=== PATIENT | male | born 1955 | race Caucasian/White ===

== ENCOUNTER 2022-01-20 00:47 | Inpatient (IN) | payer OTHER, SELFPAY ==
[2022-01-20] VITALS (64 sets, daily range): BP systolic 71–136; BP diastolic 43–66; PULSE 74–97; RESP 9–21; TEMP 36.7–37.1; O2SAT 91–98; BMI 24.8
--- NOTE | 2022-01-20 00:52 | DI.CT.S_ITS ---
PROCEDURE: CT STROKE INDICATIONS: altered, fall, head injury TECHNIQUE: Noncontrast 4.5 mm thick angled axial sections acquired from the foramen magnum to the vertex, with coronal reformats. For radiation dose reduction, the following was used: automated exposure control, adjustment of mA and/or kV according to patient size. COMPARISON: None. FINDINGS: Image quality: Excellent. CSF spaces: Basal cisterns are patent. No extra-axial fluid collections. The ventricles are normal in size and shape. Brain: No intracranial bleeds or masses. There is cerebral volume loss for age, with resultant ventricular and sulcal prominence. There are periventricular and deep white matter chronic small vessel ischemic changes. There is intracranial internal carotid artery atherosclerosis. There are postsurgical changes involving the posterior left parietal lobe with associated encephalomalacia of the left posterior parietal lobe. Moderate deep white matter hypoattenuation extending to the posterior horn of the left lateral ventricle. Skull and face: Calvarium and visualized facial bones appear intact, without suspicious lesions. Postsurgical changes of prior left posterior parietal craniotomy. Sinuses: Visualized sinuses and mastoids are clear. IMPRESSION: 1. CT head without acute intracranial abnormalities. No acute intracranial hemorrhage. 2. Postoperative changes of the left posterior parietal lobe with associated encephalomalacia. No evidence for mass or mass effect. 3. Postoperative changes of prior left parietal craniotomy. 4. Age related senescent changes and sequela of chronic small vessel ischemic disease. Findings were discussed with Dr. Lmaa at 0114 hrs. This study fulfills neurological imaging criteria for inclusion or exclusion of acute stroke therapies based on available published neurological guidelines. Dictated by: Sergio Thornton M.D. on 01/20/2022 at 1:09 Approved by: Sergio Thornton M.D. on 01/20/2022 at 1:16
--- NOTE | 2022-01-20 00:54 | ED_ITS ---
HPI - Neuro Symptoms/Deficit <Joaquín Lama DO - Last Filed: 01/21/22 04:35> General Chief Complaint: Neuro Symptoms/Deficit Stated Complaint: Fall/Stroke Time Seen by Provider: 01/20/22 00:52 History of Present Illness HPI Narrative: 66-year-old male nonsmoker with history of prior stroke, brain surgery on Xarelto, phrenic nerve paralysis, HTN, Hyperlipidemia, PE presents by EMS as a code stroke for evaluation of altered mental status surrounding a fall. He was last seen at his normal baseline at 11:00 p.m., he had an unwitnessed fall resulting in a scalp laceration at 11:20 p.m. and EMS was called. He is nauseated but has had no vomiting. He denies any blurred vision or trouble with speech. He has residual right-sided deficits from prior stroke and surgeries. Related Data Home Medications Medication Instructions Recorded Confirmed aripiprazole 5 mg tablet 5 mg PO 1700 01/20/22 01/20/22 atorvastatin 20 mg tablet 20 mg PO QPM 01/20/22 01/20/22 bupropion HCl 200 mg tablet,12 hr 200 mg PO BID 01/20/22 01/20/22 sustained-release buspirone 15 mg tablet 15 mg PO TID 01/20/22 01/20/22 diphenhydramine HCl 25 mg tablet 25 - 50 mg PO Q4HR PRN 01/20/22 01/20/22 duloxetine 60 mg capsule,delayed 60 mg PO 1700 01/20/22 01/20/22 release fluticasone propionate 50 2 spray INTRANASAL BID 01/20/22 01/20/22 mcg/actuation nasal spray,suspension hydromorphone 8 mg tablet 8 mg PO Q6H 01/20/22 01/20/22 hydromorphone 8 mg tablet,extended 8 mg PO 2200 01/20/22 01/20/22 release 24 hr lisinopril 40 mg tablet 40 mg PO 0 01/20/22 01/20/22 loratadine 10 mg tablet 10 mg PO DAILY 01/20/22 01/20/22 metoprolol succinate 100 mg 100 mg PO 1700 01/20/22 01/20/22 tablet,extended release 24 hr omeprazole 20 mg capsule,delayed 20 mg PO DAILY PRN 01/20/22 01/20/22 release rivaroxaban 20 mg tablet (Xarelto) 20 mg PO 1700 01/20/22 01/20/22 sennosides 8.6 mg-docusate sodium 3 - 6 tab-cap PO BEDTIME PRN 01/20/22 01/20/22 50 mg tablet (Senna with Docusate Sodium) solifenacin 10 mg tablet 10 mg PO Q OTHER DAY 01/20/22 01/20/22 tizanidine 4 mg tablet 4 mg PO TID 01/20/22 01/20/22 trazodone 100 mg tablet 300 mg PO 2200 01/20/22 01/20/22 Allergies Allergy/AdvReac Type Severity Reaction Status Date / Time latex Allergy Verified 01/20/22 15:23 Penicillins Allergy Verified 01/20/22 15:23 Review of Systems <Joaquín Lama DO - Last Filed: 01/21/22 04:35> Review of Systems Narrative: GENERAL: Denies chills, fatigue, malaise, fever, sweats. HEENT: Denies sinus pain, ear pain, sore throat, difficulty swallowing, dizziness. RESPIRATORY: Denies dyspnea, cough, wheezing, hemoptysis, sputum. CARDIOVASCULAR: Denies chest pain, palpitations, orthopnea, edema, GASTROINTESTINAL: Denies nausea, vomiting, abdominal pain, diarrhea, constipation, melena. : Denies dysuria, frequency, incontinence, hematuria, urinary retention. MUSCULOSKELETAL: denies weakness, joint pain, or bony pain SKIN: Denies rash, skin lesions, or other NEUROLOGIC: Denies weakness, headache, numbness, change in speech, confusion, seizures, incoordination. PSYCHIATRIC: No concerning psychosocial issues. 12 point review of systems is negative except for those stated above Patient History <Joaquín Lama DO - Last Filed: 01/21/22 04:35> Medical History (Updated 01/20/22 @ 16:34 by Gina Morataya MD) Brain tumor (benign) History of pulmonary embolus (PE) Hyperlipemia, fat-induced Hypertension Stroke Surgical History (Updated 01/20/22 @ 15:22 by Lisa Howell MD) H/O brain surgery Family History (Updated 01/20/22 @ 15:23 by Lisa Howell MD) Father Cancer Mother Cancer Social History household members: spouse Smoking Status: Former smoker Exam <Joaquín Lama DO - Last Filed: 01/21/22 04:35> Narrative Exam Narrative: GENERAL: [66] year old patient appears stated age. Well-developed patient, in mild distress. HEAD: Scalp laceration without evidence of depressed skull fracture EYES: Pupils equal round and reactive. Extraocular motions intact. No scleral icterus. No injection or drainage. ENT: Nose without bleeding, purulent drainage. Throat without erythema, tonsillar hypertrophy or exudate. Airway patent. NECK: Trachea midline. Non tender CARDIOVASCULAR: Regular rate and rhythm without murmurs, gallops, or rubs. RESPIRATORY: Clear to auscultation. Breath sounds equal bilaterally. No wheezes, rales, or rhonchi. GASTROINTESTINAL: Abdomen soft, non-tender, nondistended. EXTREMITIES: No edema or joint tenderness. BACK: Nontender without deformity or crepitance. No flank tenderness. NEURO: AOx3. SKIN: No rash or erythema of visible areas Initial Vital Signs Initial Vital Signs: Vital Signs Temperature 98.3 F 01/20/22 00:55 Pulse Rate 75 01/20/22 00:55 Respiratory Rate 15 01/20/22 00:55 Blood Pressure 88/53 L 01/20/22 00:55 Pulse Oximetry 97 01/20/22 00:55 <Gina Morataya MD - Last Filed: 01/20/22 16:34> Initial Vital Signs Initial Vital Signs: Vital Signs Temperature 98.3 F 01/20/22 00:55 Pulse Rate 75 01/20/22 00:55 Respiratory Rate 15 01/20/22 00:55 Blood Pressure 88/53 L 01/20/22 00:55 Pulse Oximetry 97 01/20/22 00:55 Procedures <Joaquín Lama DO - Last Filed: 01/21/22 04:35> Laceration Repair Laceration 1: Site: scalp Size (cm): 3 Description: stellate Depth: simple, single layer Local Anesthetic: lidocaine 1% and with epi Amount of anesthesia used (mL): 4 Pre-repair: cleansed with chlorhexadine Skin layer closed with: samuel Number of sutures: 4 Course <Joaquín Lama DO - Last Filed: 01/21/22 04:35> Course Course Narrative: patient with minimal urine in shepherd, but notably bloody Orders Ordered: Aripiprazole (Aripiprazole 2 Mg Tablet) 5 mg PO 1700 [facility] Last Admin: 01/20/22 22:47 Dose: Not Given Documented by: CHRIS Atorvastatin Calcium (Atorvastatin 20 Mg Tablet) 20 mg PO 1700 [facility] Last Admin: 01/20/22 22:35 Dose: 20 mg Documented by: CHRIS Bupropion HCl (Bupropion Sr 100 Mg Tab) 200 mg PO BID [facility] Buspirone HCl (Buspirone 5 Mg Tablet) 15 mg PO TID [facility] Last Admin: 01/20/22 22:34 Dose: 15 mg Documented by: CHRIS Diphenhydramine HCl (Diphenhydramine 25 Mg Tablet) 25 mg PO Q6HR PRN PRN Reason: Itching Last Admin: 01/20/22 23:10 Dose: 25 mg Documented by: CHRIS Duloxetine HCl (Duloxetine 30 Mg Capsule) 60 mg PO 1700 [facility] Last Admin: 01/20/22 22:35 Dose: 60 mg Documented by: CHRIS Fluticasone Propionate (Fluticasone 120 [place]/16 Gm [place].Susp) 2 spray NASAL BID [facility] Last Admin: 01/20/22 22:36 Dose: 2 spray Documented by: CHRIS Hydromorphone HCl (Hydromorphone 1 Mg Inj) 1 mg IV Q4H PRN PRN Reason: paim Last Admin: 01/20/22 11:41 Dose: 1 mg Documented by: RAIZA Hydromorphone HCl (Hydromorphone 4 Mg Tablet) 8 mg PO Q6HR PRN PRN Reason: Pain, Severe (7-10) Last Admin: 01/20/22 20:48 Dose: 8 mg Documented by: CHRIS Sodium Chloride (Normal Saline 0.9%) 1,000 mls @ 150 mls/hr IV CONT [facility] Last Admin: 01/20/22 23:11 Dose: 150 mls/hr Documented by: Infusion: 01/20/22 22:18 Dose: 150 mls/hr Documented by: Admin: 01/20/22 15:37 Dose: 150 mls/hr Documented by: Infusion: 01/20/22 15:14 Dose: 0 mls/hr Documented by: Admin: 01/20/22 07:07 Dose: 150 mls/hr Documented by: Infusion: 01/20/22 01:57 Dose: 0 mls/hr Documented by: Admin: 01/20/22 01:00 Dose: 1,000 mls/hr Documented by: ANTHONY Levofloxacin (Levaquin) 500 mg in 100 mls @ 100 mls/hr IV Q24H [facility] Last Infusion: 01/20/22 19:00 Dose: 0 mls/hr Documented by: Admin: 01/20/22 15:53 Dose: 100 mls/hr Documented by: MADINA Lisinopril (Lisinopril 20 Mg Tablet) 40 mg PO 1700 [facility] Last Admin: 01/20/22 22:48 Dose: Not Given Documented by: CHRIS Loratadine (Loratadine 10 Mg Tablet) 10 mg PO DAILY [facility] Metoprolol Succinate (Metoprolol Er 50 Mg Tablet) 100 mg PO 1700 [facility] Last Admin: 01/20/22 22:49 Dose: Not Given Documented by: CHRIS Hydromophone Er 8 Mg 8 mg PO 2200 [facility] Last Admin: 01/20/22 23:58 Dose: 8 mg Documented by: ELI Sennosides-Docusate (Sodium) 3 tab PO DAILY PRN PRN Reason: Constipation Last Admin: 01/20/22 23:59 Dose: 3 tab Documented by: ELI Rivaroxaban (Rivaroxaban 10 Mg Tablet) 20 mg PO 1700 [facility] Last Admin: 01/20/22 22:50 Dose: Not Given Documented by: CHRIS Solifenacin (Solifenacin 5 Mg Tablet) 10 mg PO SEEINSTR [facility] Tizanidine HCl (Tizanidine 4 Mg Tablet) 4 mg PO TID [facility] Last Admin: 01/20/22 22:35 Dose: 4 mg Documented by: CHRIS Trazodone HCl (Trazodone 100 Mg Tablet) 300 mg PO 2200 [facility] Last Admin: 01/20/22 22:36 Dose: 300 mg Documented by: CHRIS Discontinued Medications Aripiprazole (Aripiprazole 2 Mg Tablet) 5 mg PO DAILY [facility] Atorvastatin Calcium (Atorvastatin 20 Mg Tablet) 20 mg PO BEDTIME [facility] Last Admin: 01/20/22 23:35 Dose: Not Given Documented by: CTRIrinaKKURAY Bupropion HCl (Bupropion Sr 100 Mg Tab) 200 mg PO TID [facility] Duloxetine HCl (Duloxetine 30 Mg Capsule) 60 mg PO DAILY [facility] Fluticasone Propionate (Fluticasone 120 [place]/16 Gm [place].Susp) 2 spray NASAL DAILY [facility] Sodium Chloride (Normal Saline 0.9%) 1,000 mls @ 1,000 mls/hr IV BOLUS ONE Stop: 01/20/22 02:55 Last Infusion: 01/20/22 03:01 Dose: 0 mls/hr Documented by: Admin: 01/20/22 01:57 Dose: 1,000 mls/hr Documented by: ANTHONY Lactated Ringer's (Lactated Ringers) 1,000 mls @ 1,000 mls/hr IV BOLUS ONE Stop: 01/20/22 03:56 Last Infusion: 01/20/22 04:13 Dose: 0 mls/hr Documented by: Admin: 01/20/22 03:00 Dose: 1,000 mls/hr Documented by: IOANA Levofloxacin (Levaquin) 750 mg in 150 mls @ 100 mls/hr IV NOW ONE Stop: 01/20/22 08:03 Last Infusion: 01/20/22 09:30 Dose: 0 mls/hr Documented by: Admin: 01/20/22 07:06 Dose: 100 mls/hr Documented by: IOANA Lidocaine/Epinephrine (Lidocaine 1% W/Epi) 1 ml SUBCUT NOW ONE Stop: 01/20/22 05:20 Last Admin: 01/20/22 05:24 Dose: 1 ml Documented by: IOANA Lisinopril (Lisinopril 20 Mg Tablet) 40 mg PO DAILY [facility] Metoprolol Succinate (Metoprolol Er 50 Mg Tablet) 100 mg PO DAILY [facility]ox[facility] ([facility]) [facility] Solifenacin (Solifenacin 5 Mg Tablet) 10 mg PO DAILY [facility] Trazodone HCl (Trazodone 100 Mg Tablet) 300 mg PO BEDTIME [facility] Last Admin: 01/20/22 23:35 Dose: Not Given Documented by: CTRMITCH Reevaluation(s) Reevaluation #1: patient has improved blood pressures after fluids and repositioning, now in the mid 90s, still no urine Time: 05:01 Consultations Consultation #1: records obtained from [facility], noting ED visit on 12/15 for a few a days of hematuria, at the time his H/H was relatively stable at and he was discharge with close follow up Vital Signs Vital signs: Vital Signs - 8 hr 01/20/22 09:30 01/20/22 09:45 01/20/22 10:00 Pulse Rate 74 75 77 Respiratory Rate 18 19 12 Blood Pressure 88/51 L 95/54 L 99/53 L Pulse Oximetry 94 97 97 01/20/22 10:15 01/20/22 10:30 01/20/22 10:45 Pulse Rate 77 75 77 Respiratory Rate 16 12 14 Blood Pressure 97/53 L 97/53 L 101/56 L Pulse Oximetry 95 96 98 01/20/22 11:00 01/20/22 11:15 01/20/22 11:30 Pulse Rate 89 91 H 90 Respiratory Rate 15 12 18 Blood Pressure 85/46 L 94/48 L 96/47 L Pulse Oximetry 96 95 92 01/20/22 11:47 01/20/22 12:00 01/20/22 12:30 Pulse Rate 86 83 80 Respiratory Rate 14 12 12 Blood Pressure 96/53 L 98/53 L 97/52 L Pulse Oximetry 94 92 94 01/20/22 13:00 01/20/22 13:30 01/20/22 14:00 Pulse Rate 79 79 75 Respiratory Rate 12 12 11 L Blood Pressure 106/53 L 110/53 L 99/53 L Pulse Oximetry 95 96 98 01/20/22 14:30 Pulse Rate 77 Respiratory Rate 16 Blood Pressure 96/52 L Pulse Oximetry 97 <Gina Morataya MD - Last Filed: 01/20/22 16:34> Orders Ordered: Aripiprazole (Aripiprazole 2 Mg Tablet) 5 mg PO 1700 [facility] Last Admin: 01/20/22 22:47 Dose: Not Given Documented by: CHRIS Atorvastatin Calcium (Atorvastatin 20 Mg Tablet) 20 mg PO 1700 [facility] Last Admin: 01/20/22 22:35 Dose: 20 mg Documented by: CHRIS Bupropion HCl (Bupropion Sr 100 Mg Tab) 200 mg PO BID [facility] Buspirone HCl (Buspirone 5 Mg Tablet) 15 mg PO TID [facility] Last Admin: 01/20/22 22:34 Dose: 15 mg Documented by: HCRIS Diphenhydramine HCl (Diphenhydramine 25 Mg Tablet) 25 mg PO Q6HR PRN PRN Reason: Itching Last Admin: 01/20/22 23:10 Dose: 25 mg Documented by: CHRIS Duloxetine HCl (Duloxetine 30 Mg Capsule) 60 mg PO 1700 [facility] Last Admin: 01/20/22 22:35 Dose: 60 mg Documented by: CHRIS Fluticasone Propionate (Fluticasone 120 [place]/16 Gm [place].Susp) 2 spray NASAL BID [facility] Last Admin: 01/20/22 22:36 Dose: 2 spray Documented by: CHRIS Hydromorphone HCl (Hydromorphone 1 Mg Inj) 1 mg IV Q4H PRN PRN Reason: paim Last Admin: 01/20/22 11:41 Dose: 1 mg Documented by: RAIZA Hydromorphone HCl (Hydromorphone 4 Mg Tablet) 8 mg PO Q6HR PRN PRN Reason: Pain, Severe (7-10) Last Admin: 01/20/22 20:48 Dose: 8 mg Documented by: CHRIS Sodium Chloride (Normal Saline 0.9%) 1,000 mls @ 150 mls/hr IV CONT [facility] Last Admin: 01/20/22 23:11 Dose: 150 mls/hr Documented by: Infusion: 01/20/22 22:18 Dose: 150 mls/hr Documented by: Admin: 01/20/22 15:37 Dose: 150 mls/hr Documented by: Infusion: 01/20/22 15:14 Dose: 0 mls/hr Documented by: Admin: 01/20/22 07:07 Dose: 150 mls/hr Documented by: Infusion: 01/20/22 01:57 Dose: 0 mls/hr Documented by: Admin: 01/20/22 01:00 Dose: 1,000 mls/hr Documented by: ANTHONY Levofloxacin (Levaquin) 500 mg in 100 mls @ 100 mls/hr IV Q24H [facility] Last Infusion: 01/20/22 19:00 Dose: 0 mls/hr Documented by: Admin: 01/20/22 15:53 Dose: 100 mls/hr Documented by: MADINA Lisinopril (Lisinopril 20 Mg Tablet) 40 mg PO 1700 [facility] Last Admin: 01/20/22 22:48 Dose: Not Given Documented by: CHRIS Loratadine (Loratadine 10 Mg Tablet) 10 mg PO DAILY [facility] Metoprolol Succinate (Metoprolol Er 50 Mg Tablet) 100 mg PO 1700 [facility] Last Admin: 01/20/22 22:49 Dose: Not Given Documented by: CHRIS Hydromophone Er 8 Mg 8 mg PO 2200 [facility] Last Admin: 01/20/22 23:58 Dose: 8 mg Documented by: ELI Sennosides-Docusate (Sodium) 3 tab PO DAILY PRN PRN Reason: Constipation Last Admin: 01/20/22 23:59 Dose: 3 tab Documented by: ELI Rivaroxaban (Rivaroxaban 10 Mg Tablet) 20 mg PO 1700 [facility] Last Admin: 01/20/22 22:50 Dose: Not Given Documented by: CHRIS Solifenacin (Solifenacin 5 Mg Tablet) 10 mg PO SEEINSTR [facility] Tizanidine HCl (Tizanidine 4 Mg Tablet) 4 mg PO TID [facility] Last Admin: 01/20/22 22:35 Dose: 4 mg Documented by: CHRIS Trazodone HCl (Trazodone 100 Mg Tablet) 300 mg PO 2200 [facility] Last Admin: 01/20/22 22:36 Dose: 300 mg Documented by: CHRIS Discontinued Medications Aripiprazole (Aripiprazole 2 Mg Tablet) 5 mg PO DAILY [facility] Atorvastatin Calcium (Atorvastatin 20 Mg Tablet) 20 mg PO BEDTIME [facility] Last Admin: 01/20/22 23:35 Dose: Not Given Documented by: CHRIS Bupropion HCl (Bupropion Sr 100 Mg Tab) 200 mg PO TID [facility] Duloxetine HCl (Duloxetine 30 Mg Capsule) 60 mg PO DAILY [facility] Fluticasone Propionate (Fluticasone 120 [place]/16 Gm [place].Susp) 2 spray NASAL DAILY [facility] Sodium Chloride (Normal Saline 0.9%) 1,000 mls @ 1,000 mls/hr IV BOLUS ONE Stop: 01/20/22 02:55 Last Infusion: 01/20/22 03:01 Dose: 0 mls/hr Documented by: Admin: 01/20/22 01:57 Dose: 1,000 mls/hr Documented by: ANTHONY Lactated Ringer's (Lactated Ringers) 1,000 mls @ 1,000 mls/hr IV BOLUS ONE Stop: 01/20/22 03:56 Last Infusion: 01/20/22 04:13 Dose: 0 mls/hr Documented by: Admin: 01/20/22 03:00 Dose: 1,000 mls/hr Documented by: IOANA Levofloxacin (Levaquin) 750 mg in 150 mls @ 100 mls/hr IV NOW ONE Stop: 01/20/22 08:03 Last Infusion: 01/20/22 09:30 Dose: 0 mls/hr Documented by: Admin: 01/20/22 07:06 Dose: 100 mls/hr Documented by: IOANA Lidocaine/Epinephrine (Lidocaine 1% W/Epi) 1 ml SUBCUT NOW ONE Stop: 01/20/22 05:20 Last Admin: 01/20/22 05:24 Dose: 1 ml Documented by: IOANA Lisinopril (Lisinopril 20 Mg Tablet) 40 mg PO DAILY [facility] Metoprolol Succinate (Metoprolol Er 50 Mg Tablet) 100 mg PO DAILY [facility] Rivaroxaban ([facility]aban 10 Mg Tablet[facility] Solifenacin (Solifenacin 5 Mg Tablet) 10 mg PO DAILY [facility] Trazodone HCl (Trazodone 100 Mg Tablet) 300 mg PO BEDTIME [facility] Last Admin: 01/20/22 23:35 Dose: Not Given Documented by: KKURAY Vital Signs Vital signs: Vital Signs - 8 hr 01/20/22 09:30 01/20/22 09:45 01/20/22 10:00 Pulse Rate 74 75 77 Respiratory Rate 18 19 12 Blood Pressure 88/51 L 95/54 L 99/53 L Pulse Oximetry 94 97 97 01/20/22 10:15 01/20/22 10:30 01/20/22 10:45 Pulse Rate 77 75 77 Respiratory Rate 16 12 14 Blood Pressure 97/53 L 97/53 L 101/56 L Pulse Oximetry 95 96 98 01/20/22 11:00 01/20/22 11:15 01/20/22 11:30 Pulse Rate 89 91 H 90 Respiratory Rate 15 12 18 Blood Pressure 85/46 L 94/48 L 96/47 L Pulse Oximetry 96 95 92 01/20/22 11:47 01/20/22 12:00 01/20/22 12:30 Pulse Rate 86 83 80 Respiratory Rate 14 12 12 Blood Pressure 96/53 L 98/53 L 97/52 L Pulse Oximetry 94 92 94 01/20/22 13:00 01/20/22 13:30 01/20/22 14:00 Pulse Rate 79 79 75 Respiratory Rate 12 12 11 L Blood Pressure 106/53 L 110/53 L 99/53 L Pulse Oximetry 95 96 98 01/20/22 14:30 Pulse Rate 77 Respiratory Rate 16 Blood Pressure 96/52 L Pulse Oximetry 97 MDM - Neuro Symptoms/Deficit <Joaquín Lama DO - Last Filed: 01/21/22 04:35> Lab Data Result diagrams: 01/20/22 09:42 01/20/22 09:42 Labs: Lab Results 01/20/22 01/20/22 01/20/22 Range/Units 00:58 00:58 00:58 WBC 14.7 H (4.5-11.0) X10^3/uL RBC 3.47 L (4.5-5.9) X10^6/uL Hgb 10.1 L (13.5-17.5) g/dL Hct 31.1 L (41-53) % MCV 89.7 (80-100) fL MCH 29.1 (26-34) PG MCHC 32.5 (30-36) % RDW 14.7 (11.6-14.8) % Plt Count 422 H (150-400) X10^3/uL Neut % (Auto) 77.0 H (50-75) % Lymph % (Auto) 10.6 L (25-40) % Branch % (Auto) 10.3 (3-14) % Eos % (Auto) 1.3 L (2-4) % Baso % (Auto) 0.8 (0-2) % Neut # (Auto) 34903 H (6149-5356) /uL Lymph # (Auto) 1600 (6856-2102) /uL Branch # (Auto) 1500 H (0-900) /uL Eos # (Auto) 200 (0-450) /uL Baso # (Auto) 100 (0-100) /uL PT 24.9 H (10.1-12.7) SECONDS INR 2.2 H (0.9-1.3) Sodium 139 (137-145) mmol/L Potassium 3.5 (3.4-5.1) mmol/L Chloride 105 (98-107) mmol/L Carbon Dioxide 29 (22-32) mmol/L BUN 18 (9-20) mg/dL Creatinine 1.17 (0.66-1.25) mg/dL Estimated GFR > 60 (>60) mL/min BUN/Creatinine Ratio 15.4 (6-22) Glucose 106 (80-110) mg/dL Lactate (0.7-2.1) mmol/L Calcium 8.3 L (8.4-10.2) mg/dL Total Bilirubin 0.1 L (0.2-1.3) mg/dL AST 16 L (17-59) IU/L ALT 11 (<50) IU/L Alkaline Phosphatase 76 (38-126) U/L Total Creatine Kinase 31 L (55-170) U/L CK-MB (CK-2) TNP CK-MB (CK-2) Rel Index TNP Troponin I < 0.012 (0.01-0.034) ng/mL Total Protein 6.6 (6.3-8.2) g/dL Albumin 3.6 (3.5-5.0) g/dL Globulin 3.0 (1.7-4.1) g/dL Albumin/Globulin Ratio 1.2 (1.0-2.8) U Opiates 300ng/mL cut (Negative) Ur Oxycodone Screen (Negative) Urine Methadone Screen (Negative) Ur Barbiturates Screen (Negative) U Tricyclic Antidepress (Negative) Ur Phencyclidine Scrn (Negative) Ur Amphetamines Screen (Negative) U Methamphetamines Scrn (Negative) Ur MDMA Scrn (Ecstasy) (Negative) U Benzodiazepines Scrn (Negative) Urine Cocaine Screen (Negative) U Marijuana (THC) Screen (Negative) Ethyl Alcohol < 10 ( - 10) mg/dL SARS-CoV-2 (PCR) (Negative) Blood Type Antibody Screen 01/20/22 01/20/22 01/20/22 Range/Units 00:58 05:20 05:20 WBC 16.1 H (4.5-11.0) X10^3/uL RBC 2.96 L (4.5-5.9) X10^6/uL Hgb 8.5 L (13.5-17.5) g/dL Hct 26.5 L (41-53) % MCV 89.5 (80-100) fL MCH 28.8 (26-34) PG MCHC 32.1 (30-36) % RDW 14.6 (11.6-14.8) % Plt Count 372 (150-400) X10^3/uL Neut % (Auto) 73.4 (50-75) % Lymph % (Auto) 14.1 L (25-40) % Branch % (Auto) 11.6 (3-14) % Eos % (Auto) 0.5 L (2-4) % Baso % (Auto) 0.4 (0-2) % Neut # (Auto) 33325 H (8273-4537) /uL Lymph # (Auto) 2300 (7361-1468) /uL Branch # (Auto) 1900 H (0-900) /uL Eos # (Auto) 100 (0-450) /uL Baso # (Auto) 100 (0-100) /uL PT (10.1-12.7) SECONDS INR (0.9-1.3) Sodium 139 (137-145) mmol/L Potassium 3.7 (3.4-5.1) mmol/L Chloride 109 H (98-107) mmol/L Carbon Dioxide 27 (22-32) mmol/L BUN 15 (9-20) mg/dL Creatinine 0.92 (0.66-1.25) mg/dL Estimated GFR > 60 (>60) mL/min BUN/Creatinine Ratio 16.3 (6-22) Glucose 104 (80-110) mg/dL Lactate 1.0 (0.7-2.1) mmol/L Calcium 7.6 L (8.4-10.2) mg/dL Total Bilirubin < 0.1 L (0.2-1.3) mg/dL AST 15 L (17-59) IU/L ALT 10 (<50) IU/L Alkaline Phosphatase 67 (38-126) U/L Total Creatine Kinase (55-170) U/L CK-MB (CK-2) CK-MB (CK-2) Rel Index Troponin I (0.01-0.034) ng/mL Total Protein 5.3 L (6.3-8.2) g/dL Albumin 2.7 L (3.5-5.0) g/dL Globulin 2.6 (1.7-4.1) g/dL Albumin/Globulin Ratio 1.0 (1.0-2.8) U Opiates 300ng/mL cut (Negative) Ur Oxycodone Screen (Negative) Urine Methadone Screen (Negative) Ur Barbiturates Screen (Negative) U Tricyclic Antidepress (Negative) Ur Phencyclidine Scrn (Negative) Ur Amphetamines Screen (Negative) U Methamphetamines Scrn (Negative) Ur MDMA Scrn (Ecstasy) (Negative) U Benzodiazepines Scrn (Negative) Urine Cocaine Screen (Negative) U Marijuana (THC) Screen (Negative) Ethyl Alcohol ( - 10) mg/dL SARS-CoV-2 (PCR) (Negative) Blood Type Antibody Screen 01/20/22 01/20/22 01/20/22 Range/Units 05:20 09:42 09:42 WBC 13.6 H (4.5-11.0) X10^3/uL RBC 3.04 L (4.5-5.9) X10^6/uL Hgb 8.7 L (13.5-17.5) g/dL Hct 27.4 L (41-53) % MCV 90.3 (80-100) fL MCH 28.5 (26-34) PG MCHC 31.6 (30-36) % RDW 14.1 (11.6-14.8) % Plt Count 377 (150-400) X10^3/uL Neut % (Auto) (50-75) % Lymph % (Auto) (25-40) % Branch % (Auto) (3-14) % Eos % (Auto) (2-4) % Baso % (Auto) (0-2) % Neut # (Auto) (0725-7900) /uL Lymph # (Auto) (1560-0402) /uL Branch # (Auto) (0-900) /uL Eos # (Auto) (0-450) /uL Baso # (Auto) (0-100) /uL PT (10.1-12.7) SECONDS INR (0.9-1.3) Sodium 139 (137-145) mmol/L Potassium 3.7 (3.4-5.1) mmol/L Chloride 110 H (98-107) mmol/L Carbon Dioxide 26 (22-32) mmol/L BUN 14 (9-20) mg/dL Creatinine 0.86 (0.66-1.25) mg/dL Estimated GFR > 60 (>60) mL/min BUN/Creatinine Ratio 16.3 (6-22) Glucose 89 (80-110) mg/dL Lactate (0.7-2.1) mmol/L Calcium 7.8 L (8.4-10.2) mg/dL Total Bilirubin (0.2-1.3) mg/dL AST (17-59) IU/L ALT (<50) IU/L Alkaline Phosphatase (38-126) U/L Total Creatine Kinase (55-170) U/L CK-MB (CK-2) CK-MB (CK-2) Rel Index Troponin I (0.01-0.034) ng/mL Total Protein (6.3-8.2) g/dL Albumin (3.5-5.0) g/dL Globulin (1.7-4.1) g/dL Albumin/Globulin Ratio (1.0-2.8) U Opiates 300ng/mL cut (Negative) Ur Oxycodone Screen (Negative) Urine Methadone Screen (Negative) Ur Barbiturates Screen (Negative) U Tricyclic Antidepress (Negative) Ur Phencyclidine Scrn (Negative) Ur Amphetamines Screen (Negative) U Methamphetamines Scrn (Negative) Ur MDMA Scrn (Ecstasy) (Negative) U Benzodiazepines Scrn (Negative) Urine Cocaine Screen (Negative) U Marijuana (THC) Screen (Negative) Ethyl Alcohol ( - 10) mg/dL SARS-CoV-2 (PCR) (Negative) Blood Type B Positive Antibody Screen Negative 01/20/22 01/20/22 Range/Units 14:10 14:25 WBC (4.5-11.0) X10^3/uL RBC (4.5-5.9) X10^6/uL Hgb (13.5-17.5) g/dL Hct (41-53) % MCV (80-100) fL MCH (26-34) PG MCHC (30-36) % RDW (11.6-14.8) % Plt Count (150-400) X10^3/uL Neut % (Auto) (50-75) % Lymph % (Auto) (25-40) % Branch % (Auto) (3-14) % Eos % (Auto) (2-4) % Baso % (Auto) (0-2) % Neut # (Auto) (4437-0492) /uL Lymph # (Auto) (5237-2362) /uL Branch # (Auto) (0-900) /uL Eos # (Auto) (0-450) /uL Baso # (Auto) (0-100) /uL PT (10.1-12.7) SECONDS INR (0.9-1.3) Sodium (137-145) mmol/L Potassium (3.4-5.1) mmol/L Chloride (98-107) mmol/L Carbon Dioxide (22-32) mmol/L BUN (9-20) mg/dL Creatinine (0.66-1.25) mg/dL Estimated GFR (>60) mL/min BUN/Creatinine Ratio (6-22) Glucose (80-110) mg/dL Lactate (0.7-2.1) mmol/L Calcium (8.4-10.2) mg/dL Total Bilirubin (0.2-1.3) mg/dL AST (17-59) IU/L ALT (<50) IU/L Alkaline Phosphatase (38-126) U/L Total Creatine Kinase (55-170) U/L CK-MB (CK-2) CK-MB (CK-2) Rel Index Troponin I (0.01-0.034) ng/mL Total Protein (6.3-8.2) g/dL Albumin (3.5-5.0) g/dL Globulin (1.7-4.1) g/dL Albumin/Globulin Ratio (1.0-2.8) U Opiates 300ng/mL cut Negative (Negative) Ur Oxycodone Screen Negative (Negative) Urine Methadone Screen Negative (Negative) Ur Barbiturates Screen Negative (Negative) U Tricyclic Antidepress Negative (Negative) Ur Phencyclidine Scrn Negative (Negative) Ur Amphetamines Screen Negative (Negative) U Methamphetamines Scrn Negative (Negative) Ur MDMA Scrn (Ecstasy) Negative (Negative) U Benzodiazepines Scrn Negative (Negative) Urine Cocaine Screen Negative (Negative) U Marijuana (THC) Screen Negative (Negative) Ethyl Alcohol ( - 10) mg/dL SARS-CoV-2 (PCR) Negative (Negative) Blood Type Antibody Screen Point of Care Testing Glucose POC 100 MDM Narrative Medical decision making narrative: patient presents by EMS for evaluation of fall with head injury and initially concern is for stroke. As visit goes on it seems unlikely that stroke is the cause and though infection is considered, the blood in his shepherd with low BP and dropping H/H suggest bleeding as the cause. For this reason fluids being slowed and permissive hypotension allowed while imaging is being processed. Patient is not dizzy or lightheaded and denies any pain or SOB. <Gina Morataya MD - Last Filed: 01/20/22 16:34> Lab Data Labs: Lab Results 01/20/22 01/20/22 01/20/22 Range/Units 00:58 00:58 00:58 WBC 14.7 H (4.5-11.0) X10^3/uL RBC 3.47 L (4.5-5.9) X10^6/uL Hgb 10.1 L (13.5-17.5) g/dL Hct 31.1 L (41-53) % MCV 89.7 (80-100) fL MCH 29.1 (26-34) PG MCHC 32.5 (30-36) % RDW 14.7 (11.6-14.8) % Plt Count 422 H (150-400) X10^3/uL Neut % (Auto) 77.0 H (50-75) % Lymph % (Auto) 10.6 L (25-40) % Branch % (Auto) 10.3 (3-14) % Eos % (Auto) 1.3 L (2-4) % Baso % (Auto) 0.8 (0-2) % Neut # (Auto) 95361 H (7410-8223) /uL Lymph # (Auto) 1600 (9674-5794) /uL Branch # (Auto) 1500 H (0-900) /uL Eos # (Auto) 200 (0-450) /uL Baso # (Auto) 100 (0-100) /uL PT 24.9 H (10.1-12.7) SECONDS INR 2.2 H (0.9-1.3) Sodium 139 (137-145) mmol/L Potassium 3.5 (3.4-5.1) mmol/L Chloride 105 (98-107) mmol/L Carbon Dioxide 29 (22-32) mmol/L BUN 18 (9-20) mg/dL Creatinine 1.17 (0.66-1.25) mg/dL Estimated GFR > 60 (>60) mL/min BUN/Creatinine Ratio 15.4 (6-22) Glucose 106 (80-110) mg/dL Lactate (0.7-2.1) mmol/L Calcium 8.3 L (8.4-10.2) mg/dL Total Bilirubin 0.1 L (0.2-1.3) mg/dL AST 16 L (17-59) IU/L ALT 11 (<50) IU/L Alkaline Phosphatase 76 (38-126) U/L Total Creatine Kinase 31 L (55-170) U/L CK-MB (CK-2) TNP CK-MB (CK-2) Rel Index TNP Troponin I < 0.012 (0.01-0.034) ng/mL Total Protein 6.6 (6.3-8.2) g/dL Albumin 3.6 (3.5-5.0) g/dL Globulin 3.0 (1.7-4.1) g/dL Albumin/Globulin Ratio 1.2 (1.0-2.8) U Opiates 300ng/mL cut (Negative) Ur Oxycodone Screen (Negative) Urine Methadone Screen (Negative) Ur Barbiturates Screen (Negative) U Tricyclic Antidepress (Negative) Ur Phencyclidine Scrn (Negative) Ur Amphetamines Screen (Negative) U Methamphetamines Scrn (Negative) Ur MDMA Scrn (Ecstasy) (Negative) U Benzodiazepines Scrn (Negative) Urine Cocaine Screen (Negative) U Marijuana (THC) Screen (Negative) Ethyl Alcohol < 10 ( - 10) mg/dL SARS-CoV-2 (PCR) (Negative) Blood Type Antibody Screen 01/20/22 01/20/22 01/20/22 Range/Units 00:58 05:20 05:20 WBC 16.1 H (4.5-11.0) X10^3/uL RBC 2.96 L (4.5-5.9) X10^6/uL Hgb 8.5 L (13.5-17.5) g/dL Hct 26.5 L (41-53) % MCV 89.5 (80-100) fL MCH 28.8 (26-34) PG MCHC 32.1 (30-36) % RDW 14.6 (11.6-14.8) % Plt Count 372 (150-400) X10^3/uL Neut % (Auto) 73.4 (50-75) % Lymph % (Auto) 14.1 L (25-40) % Branch % (Auto) 11.6 (3-14) % Eos % (Auto) 0.5 L (2-4) % Baso % (Auto) 0.4 (0-2) % Neut # (Auto) 51494 H (2040-2576) /uL Lymph # (Auto) 2300 (9712-8197) /uL Branch # (Auto) 1900 H (0-900) /uL Eos # (Auto) 100 (0-450) /uL Baso # (Auto) 100 (0-100) /uL PT (10.1-12.7) SECONDS INR (0.9-1.3) Sodium 139 (137-145) mmol/L Potassium 3.7 (3.4-5.1) mmol/L Chloride 109 H (98-107) mmol/L Carbon Dioxide 27 (22-32) mmol/L BUN 15 (9-20) mg/dL Creatinine 0.92 (0.66-1.25) mg/dL Estimated GFR > 60 (>60) mL/min BUN/Creatinine Ratio 16.3 (6-22) Glucose 104 (80-110) mg/dL Lactate 1.0 (0.7-2.1) mmol/L Calcium 7.6 L (8.4-10.2) mg/dL Total Bilirubin < 0.1 L (0.2-1.3) mg/dL AST 15 L (17-59) IU/L ALT 10 (<50) IU/L Alkaline Phosphatase 67 (38-126) U/L Total Creatine Kinase (55-170) U/L CK-MB (CK-2) CK-MB (CK-2) Rel Index Troponin I (0.01-0.034) ng/mL Total Protein 5.3 L (6.3-8.2) g/dL Albumin 2.7 L (3.5-5.0) g/dL Globulin 2.6 (1.7-4.1) g/dL Albumin/Globulin Ratio 1.0 (1.0-2.8) U Opiates 300ng/mL cut (Negative) Ur Oxycodone Screen (Negative) Urine Methadone Screen (Negative) Ur Barbiturates Screen (Negative) U Tricyclic Antidepress (Negative) Ur Phencyclidine Scrn (Negative) Ur Amphetamines Screen (Negative) U Methamphetamines Scrn (Negative) Ur MDMA Scrn (Ecstasy) (Negative) U Benzodiazepines Scrn (Negative) Urine Cocaine Screen (Negative) U Marijuana (THC) Screen (Negative) Ethyl Alcohol ( - 10) mg/dL SARS-CoV-2 (PCR) (Negative) Blood Type Antibody Screen 01/20/22 01/20/22 01/20/22 Range/Units 05:20 09:42 09:42 WBC 13.6 H (4.5-11.0) X10^3/uL RBC 3.04 L (4.5-5.9) X10^6/uL Hgb 8.7 L (13.5-17.5) g/dL Hct 27.4 L (41-53) % MCV 90.3 (80-100) fL MCH 28.5 (26-34) PG MCHC 31.6 (30-36) % RDW 14.1 (11.6-14.8) % Plt Count 377 (150-400) X10^3/uL Neut % (Auto) (50-75) % Lymph % (Auto) (25-40) % Branch % (Auto) (3-14) % Eos % (Auto) (2-4) % Baso % (Auto) (0-2) % Neut # (Auto) (3954-9259) /uL Lymph # (Auto) (4826-4706) /uL Branch # (Auto) (0-900) /uL Eos # (Auto) (0-450) /uL Baso # (Auto) (0-100) /uL PT (10.1-12.7) SECONDS INR (0.9-1.3) Sodium 139 (137-145) mmol/L Potassium 3.7 (3.4-5.1) mmol/L Chloride 110 H (98-107) mmol/L Carbon Dioxide 26 (22-32) mmol/L BUN 14 (9-20) mg/dL Creatinine 0.86 (0.66-1.25) mg/dL Estimated GFR > 60 (>60) mL/min BUN/Creatinine Ratio 16.3 (6-22) Glucose 89 (80-110) mg/dL Lactate (0.7-2.1) mmol/L Calcium 7.8 L (8.4-10.2) mg/dL Total Bilirubin (0.2-1.3) mg/dL AST (17-59) IU/L ALT (<50) IU/L Alkaline Phosphatase (38-126) U/L Total Creatine Kinase (55-170) U/L CK-MB (CK-2) CK-MB (CK-2) Rel Index Troponin I (0.01-0.034) ng/mL Total Protein (6.3-8.2) g/dL Albumin (3.5-5.0) g/dL Globulin (1.7-4.1) g/dL Albumin/Globulin Ratio (1.0-2.8) U Opiates 300ng/mL cut (Negative) Ur Oxycodone Screen (Negative) Urine Methadone Screen (Negative) Ur Barbiturates Screen (Negative) U Tricyclic Antidepress (Negative) Ur Phencyclidine Scrn (Negative) Ur Amphetamines Screen (Negative) U Methamphetamines Scrn (Negative) Ur MDMA Scrn (Ecstasy) (Negative) U Benzodiazepines Scrn (Negative) Urine Cocaine Screen (Negative) U Marijuana (THC) Screen (Negative) Ethyl Alcohol ( - 10) mg/dL SARS-CoV-2 (PCR) (Negative) Blood Type B Positive Antibody Screen Negative 01/20/22 01/20/22 Range/Units 14:10 14:25 WBC (4.5-11.0) X10^3/uL RBC (4.5-5.9) X10^6/uL Hgb (13.5-17.5) g/dL Hct (41-53) % MCV (80-100) fL MCH (26-34) PG MCHC (30-36) % RDW (11.6-14.8) % Plt Count (150-400) X10^3/uL Neut % (Auto) (50-75) % Lymph % (Auto) (25-40) % Branch % (Auto) (3-14) % Eos % (Auto) (2-4) % Baso % (Auto) (0-2) % Neut # (Auto) (5051-0883) /uL Lymph # (Auto) (2103-7272) /uL Branch # (Auto) (0-900) /uL Eos # (Auto) (0-450) /uL Baso # (Auto) (0-100) /uL PT (10.1-12.7) SECONDS INR (0.9-1.3) Sodium (137-145) mmol/L Potassium (3.4-5.1) mmol/L Chloride (98-107) mmol/L Carbon Dioxide (22-32) mmol/L BUN (9-20) mg/dL Creatinine (0.66-1.25) mg/dL Estimated GFR (>60) mL/min BUN/Creatinine Ratio (6-22) Glucose (80-110) mg/dL Lactate (0.7-2.1) mmol/L Calcium (8.4-10.2) mg/dL Total Bilirubin (0.2-1.3) mg/dL AST (17-59) IU/L ALT (<50) IU/L Alkaline Phosphatase (38-126) U/L Total Creatine Kinase (55-170) U/L CK-MB (CK-2) CK-MB (CK-2) Rel Index Troponin I (0.01-0.034) ng/mL Total Protein (6.3-8.2) g/dL Albumin (3.5-5.0) g/dL Globulin (1.7-4.1) g/dL Albumin/Globulin Ratio (1.0-2.8) U Opiates 300ng/mL cut Negative (Negative) Ur Oxycodone Screen Negative (Negative) Urine Methadone Screen Negative (Negative) Ur Barbiturates Screen Negative (Negative) U Tricyclic Antidepress Negative (Negative) Ur Phencyclidine Scrn Negative (Negative) Ur Amphetamines Screen Negative (Negative) U Methamphetamines Scrn Negative (Negative) Ur MDMA Scrn (Ecstasy) Negative (Negative) U Benzodiazepines Scrn Negative (Negative) Urine Cocaine Screen Negative (Negative) U Marijuana (THC) Screen Negative (Negative) Ethyl Alcohol ( - 10) mg/dL SARS-CoV-2 (PCR) Negative (Negative) Blood Type Antibody Screen Point of Care Testing Glucose POC [address] scan - head: Radiologist's Impression: FINDINGS:? Image quality:? Excellent.? ? CSF spaces:? Basal cisterns are patent.? No extra-axial fluid collections.? The ventricles are normal in size and shape.? ? Brain:? No intracranial bleeds or masses.? There is cerebral volume loss for age, with resultant ventricular and sulcal prominence.? There are periventricular and deep white matter chronic small vessel ischemic changes.? There is intracranial internal carotid artery atherosclerosis.? There are postsurgical changes involving the posterior left parietal lobe with associated encephalomalacia of the left posterior parietal lobe.? Moderate deep white matter hypoattenuation extending to the posterior horn of the left lateral ventricle. ? Skull and face:? Calvarium and visualized facial bones appear intact, without suspicious lesions.? Postsurgical changes of prior left posterior parietal craniotomy.? ? Sinuses:? Visualized sinuses and mastoids are clear.? ? IMPRESSION:? ? 1. CT head without acute intracranial abnormalities.? No acute intracranial hemorrhage. ? 2. Postoperative changes of the left posterior parietal lobe with associated encephalomalacia.? No evidence for mass or mass effect. ? 3. Postoperative changes of prior left parietal craniotomy. ? 4. Age related senescent changes and sequela of chronic small vessel ischemic disease. ? Findings were discussed with Dr. Lama at 0114 hrs.? ? This study fulfills neurological imaging criteria for inclusion or exclusion of acute stroke therapies based on available published neurological guidelines.? ? ? Dictated by: Sergio Thornton M.D. on 01/20/2022 at 1:09? ?? Chest x-ray: Radiologist's Impression: FINDINGS:? ? Surgical changes and devices:? Surgical clips project over the upper left chest and left lower neck.? There also surgical clips along the left upper abdomen. ? Lungs and pleura:? Moderate eventration of the left hemidiaphragm with several loops of air-filled bowel in the left subdiaphragmatic region.? Associated compressive atelectasis of the left lung base.? Otherwise, no acute airspace disease identified.? No pleural effusion or pneumothorax. ? Mediastinum:? Mediastinal contours appear normal.? Heart size is normal.? ? Bones and chest wall:? No suspicious bony lesions.? Overlying soft tissues appear unremarkable.? ? IMPRESSION:? Chest without acute cardiopulmonary abnormalities. ? ? Dictated by: Sergio Thornton M.D. on 01/20/2022 at 1:44? ?? CT scan - abdomen/pelvis: Radiologist's Impression: FINDINGS:? Image quality:? Excellent.? ? CHEST: Lower Neck: No enlarged lymph nodes.? Thyroid: Within normal limits. Axillae: No enlarged lymph nodes. Chest Wall:? Left supraclavicular and left chest wall clips are seen. ? Lungs and Airways: No consolidation or suspicious nodules.? The left hemidiaphragm is elevated.? Pectus is seen at the left lung base. Pleura: No pneumothorax or pleural effusions.? ? Heart: Heart size is normal.? No pericardial effusion. Thoracic Vessels: The aorta and pulmonary arteries demonstrate normal size.? Mediastinum and Sandi: No enlarged lymph nodes.? Esophagus: No wall thickening. No hiatal hernia. ? ? ABDOMEN: Liver:? Unremarkable.? ? Gallbladder:? Removed.? ? Biliary ducts:? Unremarkable.? ? Pancreas:? Unremarkable.? ? Spleen:? Splenectomy change with a small splenule can be seen, as on series 2, image 39. Adrenal Glands:? Unremarkable.? ? Kidneys and Ureters:? Mild to moderate left-sided hydroureter and hydronephrosis is seen. ?Minimal right-sided hydronephrosis is seen.? The kidneys demonstrate normal size.? No stones are seen. ? Stomach and Bowel:? Postoperative clips are seen near the gastroesophageal junction.? Mild wall thickening is seen involving the rectum.? There is a moderate amount of stool seen within the colon.? Mild wall thickening is seen involving the splenic flexure.? Stomach, small bowel loops, and colon are otherwise unremarkable.? Peritoneum:? No abnormal intraperitoneal fluid.? No free air.? ? Ventral Wall: ? No hernia.? Abdominal Nodes:? No retroperitoneal or mesenteric adenopathy by size criteria.? Vessels:? Aorta and inferior vena cava are normal in size.? ? PELVIS: Pelvic Organs:? Prostatectomy change with postoperative clips are seen. Bladder:? A Shepherd catheter is seen, which decompresses the bladder.? Pelvic Nodes: No enlarged lymph nodes.? Miscellaneous: No inguinal hernias are seen. ? ? ? Bones:? [id number] levoconvex scoliosis is seen.? Degenerative changes are seen throughout, which are worst involving the lumbar spine. ? IMPRESSION:? [id number] left-sided hydroureter and hydronephrosis.? No cause of obstruction is seen.? This is improved compared to the prior examination.? The previously seen right-sided hydronephrosis is nearly resolved. ? Mild wall thickening is seen involving the rectum.? Please consider mild proctitis. ? There is a moderate amount of stool seen within the colon. Please correlate with an underlying history of constipation.? ? Mild wall thickening is seen within the splenic flexure.? If clinically appropriate, please consider follow-up colonoscopy. ? ? Incidental note is made of: Left supraclavicular clips and left chest wall clips Elevated left hemidiaphragm Postoperative clips adjacent to the gastroesophageal junction Cholecystectomy Splenectomy with a small splenule. Prostatectomy Shepherd catheter [id number] levoconvex scoliosis ? ? ? Note: No significant discrepancy from the preliminary report. ? Dictated by: Dakota Mejia M.D. on 01/20/2022 at 8:27? ?? MDM Narrative Medical decision making narrative: patient presents by EMS for evaluation of fall with head injury and initially concern is for stroke. As visit goes on it seems unlikely that stroke is the cause and though infection is considered, the blood in his shepherd with low BP and dropping H/H suggest bleeding as the cause. For this reason fluids being slowed and permissive hypotension allowed while imaging is being processed. Patient is not dizzy or lightheaded and denies any pain or SOB. 66-year-old gentleman who initially presents with concerns for stroke with no evidence of stroke on further clinical exam or head CT. He has been relatively hypotensive with gross hematuria appreciated, after 3 L of fluid he is making urine but it does remain grossly bloody. Has not been febrile, is not complaining of flank pain and has no evidence of elevated lactic acid. His white blood cell count is moderately elevated and it looks like he actually has had moderate amount of blood loss secondary to hematuria with initial hemoglobin at 10.1 dropping to 8.5 after the initial 3 L and then back up to 8.7 with maintenance fluids only. He has been treated with Levaquin At this time he remains significantly weak, continuing to have gross hematuria, with continued relative hypotension. Recommend hospitalization for treatment of presumed urinary tract infection, urine culture is pending there were for to many red blood cells for additional 8 urine microscopic details. There is no evidence of stroke no evidence of intracranial bleeding. Discharge Plan Departure Patient Disposition: Admitted As Inpatient Clinical Impression: Hematuria, Weakness, Acute anemia Admit Date/Time: 01/20/22 14:40 Admit Provider: Lisa Howell
[2022-01-20] MEDS: SODIUM CHLORIDE 0.9% 1,000 ML 1000 ML IV ×2 (01:00→01:57)
[2022-01-20 01:07] LABS: Add Manual Diff / Slide Review NO; Basophils Absolute Auto 100 /uL (0-100); Basophils Percent Auto 0.8 % (0-2); Eosinophils Absolute Auto 200 /uL (0-450); Eosinophils Percent Auto 1.3 % (2-4); Hematocrit 31.1 % (41-53); Hemoglobin 10.1 g/dL (13.5-17.5); Lymphocytes Absolute Auto 1600 /uL (1100-4500); Lymphocytes Percent Auto 10.6 % (25-40); Mean Corpuscular HGB Conc 32.5 % (30-36); Mean Corpuscular Hemoglobin 29.1 PG (26-34); Mean Corpuscular Volume 89.7 fL (80-100); Monocytes Absolute Auto 1500 /uL (0-900); Monocytes Percent Auto 10.3 % (3-14); Neutrophils Absolute Auto 11300 /uL (1500-7000); Platelet Count 422 X10^3/uL (150-400); Red Blood Cell Count 3.47 X10^6/uL (4.5-5.9); Red Cell Distribution Width 14.7 % (11.6-14.8); White Blood Cell Count 14.7 X10^3/uL (4.5-11.0)
[2022-01-20 01:18] LABS: INR 2.2 (0.9-1.3); Prothrombin Time 24.9 SECONDS (10.1-12.7)
[2022-01-20 01:19] LABS: Alanine Aminotransferase 11 IU/L (<50); Albumin 3.6 g/dL (3.5-5.0); Albumin Globulin Ratio 1.2 (1.0-2.8); Alkaline Phosphatase 76 U/L (38-126); Aspartate Aminotransferase 16 IU/L (17-59); BUN Creatinine Ratio 15.4 (6-22); Blood Urea Nitrogen 18 mg/dL (9-20); Calcium 8.3 mg/dL (8.4-10.2); Carbon Dioxide 29 mmol/L (22-32); Chloride 105 mmol/L (98-107); Creatine Kinase 31 U/L (55-170); Estimated Glomerular Filt Rate > 60 mL/min (>60); Ethanol (ETOH) < 10 mg/dL; Glucose 106 mg/dL (80-110); HEMOLYSIS < 15 (0-50); Potassium 3.5 mmol/L (3.4-5.1); Sodium 139 mmol/L (137-145); Total Protein 6.6 g/dL (6.3-8.2)
--- NOTE | 2022-01-20 01:28 | DI.RAD.S_ITS ---
PROCEDURE: XR CHEST 1V INDICATIONS: stroke TECHNIQUE: One view of the chest was acquired. COMPARISON: None. FINDINGS: Surgical changes and devices: Surgical clips project over the upper left chest and left lower neck. There also surgical clips along the left upper abdomen. Lungs and pleura: Moderate eventration of the left hemidiaphragm with several loops of air-filled bowel in the left subdiaphragmatic region. Associated compressive atelectasis of the left lung base. Otherwise, no acute airspace disease identified. No pleural effusion or pneumothorax. Mediastinum: Mediastinal contours appear normal. Heart size is normal. Bones and chest wall: No suspicious bony lesions. Overlying soft tissues appear unremarkable. IMPRESSION: Chest without acute cardiopulmonary abnormalities. Dictated by: Sergio Thornton M.D. on 01/20/2022 at 1:44 Approved by: Sergio Thornton M.D. on 01/20/2022 at 1:46
[2022-01-20 01:29] LABS: Bilirubin Total 0.1 mg/dL (0.2-1.3)
[2022-01-20 01:32] LABS: Troponin I < 0.012 ng/mL (0.01-0.034)
--- NOTE | 2022-01-20 02:50 | DI.CT.S_ITS ---
PROCEDURE: CT CHEST ABD PEL W CON INDICATIONS: weakness, hypotension TECHNIQUE: After the administration of oral and intravenous contrast, axial sections acquired from the supraclavicular neck to the pubic symphysis. Coronal and sagittal reformats were performed. For radiation dose reduction, the following was used: automated exposure control, adjustment of mA and/or kV according to patient size. COMPARISON: [facility], CT, CT KUB, 11/11/2021, 1:01. FINDINGS: Image quality: Excellent. CHEST: Lower Neck: No enlarged lymph nodes. Thyroid: Within normal limits. Axillae: No enlarged lymph nodes. Chest Wall: Left supraclavicular and left chest wall clips are seen. Lungs and Airways: No consolidation or suspicious nodules. The left hemidiaphragm is elevated. Pectus is seen at the left lung base. Pleura: No pneumothorax or pleural effusions. Heart: Heart size is normal. No pericardial effusion. Thoracic Vessels: The aorta and pulmonary arteries demonstrate normal size. Mediastinum and Sandi: No enlarged lymph nodes. Esophagus: No wall thickening. No hiatal hernia. ABDOMEN: Liver: Unremarkable. Gallbladder: Removed. Biliary ducts: Unremarkable. Pancreas: Unremarkable. Spleen: Splenectomy change with a small splenule can be seen, as on series 2, image 39. Adrenal Glands: Unremarkable. Kidneys and Ureters: Mild to moderate left-sided hydroureter and hydronephrosis is seen. Minimal right-sided hydronephrosis is seen. The kidneys demonstrate normal size. No stones are seen. Stomach and Bowel: Postoperative clips are seen near the gastroesophageal junction. Mild wall thickening is seen involving the rectum. There is a moderate amount of stool seen within the colon. Mild wall thickening is seen involving the splenic flexure. Stomach, small bowel loops, and colon are otherwise unremarkable. Peritoneum: No abnormal intraperitoneal fluid. No free air. Ventral Wall: No hernia. Abdominal Nodes: No retroperitoneal or mesenteric adenopathy by size criteria. Vessels: Aorta and inferior vena cava are normal in size. PELVIS: Pelvic Organs: Prostatectomy change with postoperative clips are seen. Bladder: A Montanez catheter is seen, which decompresses the bladder. Pelvic Nodes: No enlarged lymph nodes. Miscellaneous: No inguinal hernias are seen. Bones: [id number] levoconvex scoliosis is seen. Degenerative changes are seen throughout, which are worst involving the lumbar spine. IMPRESSION: [id number] left-sided hydroureter and hydronephrosis. No cause of obstruction is seen. This is improved compared to the prior examination. The previously seen right-sided hydronephrosis is nearly resolved. Mild wall thickening is seen involving the rectum. Please consider mild proctitis. There is a moderate amount of stool seen within the colon. Please correlate with an underlying history of constipation. Mild wall thickening is seen within the splenic flexure. If clinically appropriate, please consider follow-up colonoscopy. Incidental note is made of: Left supraclavicular clips and left chest wall clips Elevated left hemidiaphragm Postoperative clips adjacent to the gastroesophageal junction Cholecystectomy Splenectomy with a small splenule. Prostatectomy Montanez catheter [id number] levoconvex scoliosis Note: No significant discrepancy from the preliminary report. Dictated by: Dakota Mejia M.D. on 01/20/2022 at 8:27 Approved by: Dakota Mejia M.D. on 01/20/2022 at 8:36
[2022-01-20] MEDS: LACTATED RINGERS 1,000 ML 1000 ML IV (03:00)
--- NOTE | 2022-01-20 04:38 | PC.NURSE ---
PT with history of stroke with effects to right side. Spouse reports pt's words not making sense and increased weakness to right side. Pt able to communicate at this time. and fall directions.
[2022-01-20] MEDS: LIDOCAINE 1% W/EPI 1 ML SUBCUT (05:24)
[2022-01-20 05:31] LABS: Add Manual Diff / Slide Review NO; Basophils Absolute Auto 100 /uL (0-100); Basophils Percent Auto 0.4 % (0-2); Eosinophils Absolute Auto 100 /uL (0-450); Eosinophils Percent Auto 0.5 % (2-4); Hematocrit 26.5 % (41-53); Hemoglobin 8.5 g/dL (13.5-17.5); Lymphocytes Absolute Auto 2300 /uL (1100-4500); Lymphocytes Percent Auto 14.1 % (25-40); Mean Corpuscular HGB Conc 32.1 % (30-36); Mean Corpuscular Hemoglobin 28.8 PG (26-34); Mean Corpuscular Volume 89.5 fL (80-100); Monocytes Absolute Auto 1900 /uL (0-900); Monocytes Percent Auto 11.6 % (3-14); Neutrophils Absolute Auto 11800 /uL (1500-7000); Neutrophils Percent Auto 73.4 % (50-75); Platelet Count 372 X10^3/uL (150-400); Red Blood Cell Count 2.96 X10^6/uL (4.5-5.9); Red Cell Distribution Width 14.6 % (11.6-14.8); White Blood Cell Count 16.1 X10^3/uL (4.5-11.0)
[2022-01-20 05:45] LABS: Alanine Aminotransferase 10 IU/L (<50); Albumin 2.7 g/dL (3.5-5.0); Alkaline Phosphatase 67 U/L (38-126); Aspartate Aminotransferase 15 IU/L (17-59); BUN Creatinine Ratio 16.3 (6-22); Blood Urea Nitrogen 15 mg/dL (9-20); Calcium 7.6 mg/dL (8.4-10.2); Carbon Dioxide 27 mmol/L (22-32); Chloride 109 mmol/L (98-107); Estimated Glomerular Filt Rate > 60 mL/min (>60); Globulin 2.6 g/dL (1.7-4.1); Glucose 104 mg/dL (80-110); HEMOLYSIS < 15 (0-50); Potassium 3.7 mmol/L (3.4-5.1); Sodium 139 mmol/L (137-145); Total Protein 5.3 g/dL (6.3-8.2)
[2022-01-20 05:47] LABS: Bilirubin Total < 0.1 mg/dL (0.2-1.3)
[2022-01-20] MEDS: levoFLOXacin 750 MG/150 ML PIGGYBACK 100 MG IV (07:06)
[2022-01-20] MEDS: SODIUM CHLORIDE 0.9% 1,000 ML 150 ML IV ×3 (07:07→23:11)
[2022-01-20 11:02] LABS: Hematocrit 27.4 % (41-53); Hemoglobin 8.7 g/dL (13.5-17.5); Mean Corpuscular HGB Conc 31.6 % (30-36); Mean Corpuscular Hemoglobin 28.5 PG (26-34); Mean Corpuscular Volume 90.3 fL (80-100); Platelet Count 377 X10^3/uL (150-400); Red Blood Cell Count 3.04 X10^6/uL (4.5-5.9); Red Cell Distribution Width 14.1 % (11.6-14.8); White Blood Cell Count 13.6 X10^3/uL (4.5-11.0)
[2022-01-20 11:08] LABS: BUN Creatinine Ratio 16.3 (6-22); Blood Urea Nitrogen 14 mg/dL (9-20); Calcium 7.8 mg/dL (8.4-10.2); Carbon Dioxide 26 mmol/L (22-32); Chloride 110 mmol/L (98-107); Estimated Glomerular Filt Rate > 60 mL/min (>60); Glucose 89 mg/dL (80-110); HEMOLYSIS < 15 (0-50); Potassium 3.7 mmol/L (3.4-5.1); Sodium 139 mmol/L (137-145)
[2022-01-20] MEDS: HYDROMORPHONE 1 MG INJ IV (11:41)
[2022-01-20 14:53] LABS: UR Morphine/Opiate cutoff 300 Negative (Negative); Ur Creatinine Normal (Normal); Ur Specific Gravity Normal (Normal); Urine Amphetamines Negative (Negative); Urine Barbiturates Negative (Negative); Urine Benzodiazepines Negative (Negative); Urine Cocaine Negative (Negative); Urine MDMA Negative (Negative); Urine Methadone Negative (Negative); Urine Methamphetamines Negative (Negative); Urine Oxycodone Negative (Negative); Urine Phencyclidine Negative (Negative); Urine Tetrahydrocannabinol Negative (Negative); Urine Tricyclic Antidepressant Negative (Negative); Urine pH Normal (Normal)
[2022-01-20 15:12] LABS: COVID19 -Nasal RAPID Negative (Negative)
--- NOTE | 2022-01-20 15:13 | P.HP_ITS ---
History of Present Illness History of Present Illness Date Patient Seen: 01/20/22 Time Patient Seen: 15:13 Chief complaint: Fall/Stroke Narrative: 66 y/o male with a history of prior stroke, brain surgery, phrenic nerve paralysis, hypertension, hyperlipidiemia, PE, on xeralto brought in by Medics following a fall and altered mental status. There was concern for a stroke, code stroke was called and patient brought for evaluation. Patient has had hematuria for 2 months with an indwelling shepherd catheter. He is followed by a Urologist at [facility] with plans for outpatient work up. He does not recall what happened today other than to say he fell. Upon arrival to the ED he was hypotensive and anemic. The patient was given IV hydration with improvement in his blood pressure. He remains weak. Patient had a low grade fever of 99.6. Urine has been sent for culture. Patient initially ound to have an elevated WBC. H/H 8.7\27.4 down from . Patient was placed on antibiotics and is admitted for further evaluation. Patient History Medical History (Updated 01/20/22 @ 15:22 by Lisa Howell MD) Brain tumor (benign) History of pulmonary embolus (PE) Hyperlipemia, fat-induced Hypertension Stroke Surgical History (Updated 01/20/22 @ 15:22 by Lisa Howell MD) H/O brain surgery Family & Social History Family History (Updated 01/20/22 @ 15:23 by Lisa Howell MD) Father Cancer Mother Cancer Safety & Behavioral: Feels Safe in Current Yes Environment Tobacco & Substance use: Patient quit smoking and drinking alcohol in 1990 Meds Home Medications and Allergies Allergies Allergy/AdvReac Type Severity Reaction Status Date / Time latex Allergy Verified 01/20/22 15:23 Penicillins Allergy Verified 01/20/22 15:23 Review of Systems Review of Systems Narrative: 10 point review of system is negative Exam Vital Signs (past 8 hours): - 01/20/22 07:15 01/20/22 07:30 01/20/22 07:33 Pulse Rate 75 74 76 Respiratory Rate 10 L 9 L 12 Blood Pressure 83/50 L 79/45 L 90/51 L Pulse Oximetry 91 91 93 01/20/22 09:30 01/20/22 09:45 01/20/22 10:00 Pulse Rate 74 75 77 Respiratory Rate 18 19 12 Blood Pressure 88/51 L 95/54 L 99/53 L Pulse Oximetry 94 97 97 01/20/22 10:15 01/20/22 10:30 01/20/22 10:45 Pulse Rate 77 75 77 Respiratory Rate 16 12 14 Blood Pressure 97/53 L 97/53 L 101/56 L Pulse Oximetry 95 96 98 01/20/22 11:00 01/20/22 11:15 01/20/22 11:30 Pulse Rate 89 91 H 90 Respiratory Rate 15 12 18 Blood Pressure 85/46 L 94/48 L 96/47 L Pulse Oximetry 96 95 92 01/20/22 11:47 01/20/22 12:00 01/20/22 12:30 Pulse Rate 86 83 80 Respiratory Rate 14 12 12 Blood Pressure 96/53 L 98/53 L 97/52 L Pulse Oximetry 94 92 94 01/20/22 13:00 01/20/22 13:30 01/20/22 14:00 Pulse Rate 79 79 75 Respiratory Rate 12 12 11 L Blood Pressure 106/53 L 110/53 L 99/53 L Pulse Oximetry 95 96 98 01/20/22 14:30 01/20/22 15:00 01/20/22 15:01 Pulse Rate 77 79 80 Respiratory Rate 16 21 21 Blood Pressure 96/52 L 111/54 L Pulse Oximetry 97 98 98 Oxygen Delivery Method Nasal Cannula Oxygen Flow Rate 3 Narrative Exam Narrative: pleasant male lying in bed in No acute Distress, somewhat vague in history HENMT Other: NC, Right parietal laceration with [address], hair matted with blood Eyes Other: EOMI, Sclera Anicteric Neck Other: Supple without adenopathy, no thyromegaly Resp Other: Lungs: clear to auscultation Cardio Other: RRR nl Sl S2 GI Other: Abd: soft/ non tender/ non distended, no HSM Other: shepherd catheter in place with abhishek dark blood Skin Other: no lesions noted Neuro Other: Mild Right facial droop, other Cranial nerves in tact Right upper extemity with flaccid paralysis, all other extremites appear normal with strength Sensation grossly intact gait not assessed Extrem Other: no edema Psych Other: Slow to respond, appears appropriate with normal thought content, somewhat vague in answers, not aware of why or how he fell speech normal, no hallucinations Objective Labs Result Diagrams: 01/20/22 09:42 01/20/22 09:42 Labs: Laboratory Results - last 24 hr 01/20/22 01/20/22 01/20/22 00:58 00:58 00:58 WBC 14.7 H RBC 3.47 L Hgb 10.1 L Hct 31.1 L MCV 89.7 MCH 29.1 MCHC 32.5 RDW 14.7 Plt Count 422 H Neut % (Auto) 77.0 H Lymph % (Auto) 10.6 L Shackelford % (Auto) 10.3 Eos % (Auto) 1.3 L Baso % (Auto) 0.8 Neut # (Auto) 12592 H Lymph # (Auto) 1600 Shackelford # (Auto) 1500 H Eos # (Auto) 200 Baso # (Auto) 100 PT 24.9 H INR 2.2 H Sodium 139 Potassium 3.5 Chloride 105 Carbon Dioxide 29 BUN 18 Creatinine 1.17 Estimated GFR > 60 BUN/Creatinine Ratio 15.4 Glucose 106 Lactate Calcium 8.3 L Total Bilirubin 0.1 L AST 16 L ALT 11 Alkaline Phosphatase 76 Total Creatine Kinase 31 L CK-MB (CK-2) TNP CK-MB (CK-2) Rel Index TNP Troponin I < 0.012 Total Protein 6.6 Albumin 3.6 Globulin 3.0 Albumin/Globulin Ratio 1.2 U Opiates 300ng/mL cut Ur Oxycodone Screen Urine Methadone Screen Ur Barbiturates Screen U Tricyclic Antidepress Ur Phencyclidine Scrn Ur Amphetamines Screen U Methamphetamines Scrn Ur MDMA Scrn (Ecstasy) U Benzodiazepines Scrn Urine Cocaine Screen U Marijuana (THC) Screen Ethyl Alcohol < 10 SARS-CoV-2 (PCR) Blood Type Antibody Screen 01/20/22 01/20/22 01/20/22 00:58 05:20 05:20 WBC 16.1 H RBC 2.96 L Hgb 8.5 L Hct 26.5 L MCV 89.5 MCH 28.8 MCHC 32.1 RDW 14.6 Plt Count 372 Neut % (Auto) 73.4 Lymph % (Auto) 14.1 L Shackelford % (Auto) 11.6 Eos % (Auto) 0.5 L Baso % (Auto) 0.4 Neut # (Auto) 27822 H Lymph # (Auto) 2300 [place]ackelford # (Auto) 1900 H Eos # (Auto) 100 Baso # (Auto) 100 PT INR Sodium 139 Potassium 3.7 Chloride 109 H Carbon Dioxide 27 BUN 15 Creatinine 0.92 Estimated GFR > 60 BUN/Creatinine Ratio 16.3 Glucose 104 Lactate 1.0 Calcium 7.6 L Total Bilirubin < 0.1 L AST 15 L ALT 10 Alkaline Phosphatase 67 Total Creatine Kinase CK-MB (CK-2) CK-MB (CK-2) Rel Index Troponin I Total Protein 5.3 L Albumin 2.7 L Globulin 2.6 Albumin/Globulin Ratio 1.0 U Opiates 300ng/mL cut Ur Oxycodone Screen Urine Methadone Screen Ur Barbiturates Screen U Tricyclic Antidepress Ur Phencyclidine Scrn Ur Amphetamines Screen U Methamphetamines Scrn Ur MDMA Scrn (Ecstasy) U Benzodiazepines Scrn Urine Cocaine Screen U Marijuana (THC) Screen Ethyl Alcohol SARS-CoV-2 (PCR) Blood Type Antibody Screen 01/20/22 01/20/22 01/20/22 05:20 09:42 09:42 WBC 13.6 H RBC 3.04 L Hgb 8.7 L Hct 27.4 L MCV 90.3 MCH 28.5 MCHC 31.6 RDW 14.1 Plt Count 377 Neut % (Auto) Lymph % (Auto) Shackelford % (Auto) Eos % (Auto) Baso % (Auto) Neut # (Auto) Lymph # (Auto) Shackelford # (Auto) Eos # (Auto) Baso # (Auto) PT INR Sodium 139 Potassium 3.7 Chloride 110 H Carbon Dioxide 26 BUN 14 Creatinine 0.86 Estimated GFR > 60 BUN/Creatinine Ratio 16.3 Glucose 89 Lactate Calcium 7.8 L Total Bilirubin AST ALT Alkaline Phosphatase Total Creatine Kinase CK-MB (CK-2) CK-MB (CK-2) Rel Index Troponin I Total Protein Albumin Globulin Albumin/Globulin Ratio U Opiates 300ng/mL cut Ur Oxycodone Screen Urine Methadone Screen Ur Barbiturates Screen U Tricyclic Antidepress Ur Phencyclidine Scrn Ur Amphetamines Screen U Methamphetamines Scrn Ur MDMA Scrn (Ecstasy) U Benzodiazepines Scrn Urine Cocaine Screen U Marijuana (THC) Screen Ethyl Alcohol SARS-CoV-2 (PCR) Blood Type B Positive Antibody Screen Negative 01/20/22 01/20/22 14:10 14:25 WBC RBC Hgb Hct MCV MCH MCHC RDW Plt Count Neut % (Auto) Lymph % (Auto) Shackelford % (Auto) Eos % (Auto) Baso % (Auto) Neut # (Auto) Lymph # (Auto) Shackelford # (Auto) Eos # (Auto) Baso # (Auto) PT INR Sodium Potassium Chloride Carbon Dioxide BUN Creatinine Estimated GFR BUN/Creatinine Ratio Glucose Lactate Calcium Total Bilirubin AST ALT Alkaline Phosphatase Total Creatine Kinase CK-MB (CK-2) CK-MB (CK-2) Rel Index Troponin I Total Protein Albumin Globulin Albumin/Globulin Ratio U Opiates 300ng/mL cut Negative Ur Oxycodone Screen Negative Urine Methadone Screen Negative Ur Barbiturates Screen Negative U Tricyclic Antidepress Negative Ur Phencyclidine Scrn Negative Ur Amphetamines Screen Negative U Methamphetamines Scrn Negative Ur MDMA Scrn (Ecstasy) Negative U Benzodiazepines Scrn Negative Urine Cocaine Screen Negative U Marijuana (THC) Screen Negative Ethyl Alcohol SARS-CoV-2 (PCR) Negative Blood Type Antibody Screen Assessment & Plan Assessment & Plan narrative: 66 y/o male with a history of stroke, brain surgery for benign tumor, hypertension, hyperlipidemia, history of PE on xeralto, recent diagnosis of hematuria with indwelling shepherd catheter admitted following a fall * Patient presents with hematuria, hypotension, s/p fall * Likely secondary to volume depletion/anemia * Acute blood loss anemia contributing * CT of Abd/Chest/ Pelvis * [id number] left-sided hydroureter and hydronephrosis.? No cause of obstruction is seen.? This is improved compared to the prior examination.? The previously seen right-sided hydronephrosis is nearly resolved. ? Mild wall thickening is seen involving the rectum.? Please consider mild proctitis. ? There is a moderate amount of stool seen within the colon. Please correlate with an underlying history of constipation.? ? Mild wall thickening is seen within the splenic flexure.? If clinically appropriate, please consider follow-up colonoscopy. Agree with antibiotics for presumed Urinary Tract Infection continue IV hydration for hypotension consult Urology ? need for cystoscopy 2. Fall with laceration Likely secondary to acute blood loss anemia and hypotension continue fluids follow H/H closely 3. History of hypertension will hold all antihypertensives 4. History of PE * Given hematuria/anemia/hypotension will hold xeralto * will check duplex of both lower extremities to r/o DVT 5. Hyperlipidemia * Need home medication list * Will resume usual home medications 6. History of stroke/Benign brain tumor * Head CT negative for acute intracranial process * Old prior surgical changes noted 7. DVT prophylaxis -SCD's -No pharmacologic anticoagulation given acute blood loss anemia Patient reports his is his surrogate decision maker, he wants to be a full code I have utilized all available methods to review update and confirm the patients current medications. Nursing to obtain medication list from his and we will adjust accordingly. Patient is admitted as an inpatient. Time Spent With Patient Critical Care time: I spent a total of [] minutes of critical care time on this patient's care today; this time is exclusive of procedural time.
[2022-01-20] MEDS: levoFLOXacin 500 MG/100 ML PIGGYBACK 100 MG IV (15:53)
--- NOTE | 2022-01-20 15:53 | PC.NURSE ---
Admit note: Patient admitted to room 220 from ED, assisted from gurney to bed sliding due to weakness. Awake, alert, and pleasantly cooperative. Received on O2 at 1L via NC, sats 92%. Montanez Catheter draining to gravity, red urine noted. Patients states urine has been red for approx 2 months since chronic Montanez cath placed by urologist. IVF and IV abx initiated on arrival. Due to a brain tumor sx in 1974 patient with residual motor and sensory deficits, to include right lower facial droop, weakness to RUE/RLE and sensory deficits. 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 Oriented to room, environment, and plan of care. This RN to contact spouse for Medication Reconciliation. High fall risk precautions initiated, call light within reach.
[2022-01-20] MEDS: HYDROMORPHONE 4 MG TABLET 8 MG PO (20:48)
[2022-01-20] MEDS: BUSPIRONE 5 MG TABLET 15 MG PO (22:34)
[2022-01-20] MEDS: ATORVASTATIN 20 MG TABLET PO (22:35)
[2022-01-20] MEDS: DULOXETINE 30 MG CAPSULE 60 MG PO (22:35)
[2022-01-20] MEDS: TIZANIDINE 4 MG TABLET PO (22:35)
[2022-01-20] MEDS: FLUTICASONE 120 SPRAY/16 GM SPRAY.SUSP NASAL (22:36)
[2022-01-20] MEDS: TRAZODONE 100 MG TABLET 300 MG PO (22:36)
[2022-01-20] MEDS: diphenhydrAMINE 25 MG TABLET PO (23:10)
[2022-01-20] MEDS: HYDROMORPHONE 8 MG 8 EACH PO (23:58)
[2022-01-20] MEDS: SENNOSIDES DOCUSATE SODIUM 3 EACH PO (23:59)
[2022-01-21] VITALS (9 sets, daily range): BP systolic 121–153; BP diastolic 56–68; PULSE 68–93; RESP 14–20; TEMP 35.7–37; O2SAT 93–97
[2022-01-21] MEDS: SODIUM CHLORIDE 0.9% 1,000 ML 150 ML IV ×2 (05:28→12:29)
[2022-01-21 05:48] LABS: Add Manual Diff / Slide Review NO; Basophils Absolute Auto 100 /uL (0-100); Basophils Percent Auto 0.9 % (0-2); Eosinophils Absolute Auto 500 /uL (0-450); Hematocrit 25.7 % (41-53); Hemoglobin 8.4 g/dL (13.5-17.5); Lymphocytes Absolute Auto 3000 /uL (1100-4500); Mean Corpuscular HGB Conc 32.6 % (30-36); Mean Corpuscular Hemoglobin 29.4 PG (26-34); Mean Corpuscular Volume 90.1 fL (80-100); Monocytes Absolute Auto 1300 /uL (0-900); Monocytes Percent Auto 12.4 % (3-14); Neutrophils Absolute Auto 5700 /uL (1500-7000); Neutrophils Percent Auto 53.7 % (50-75); Platelet Count 368 X10^3/uL (150-400); Red Blood Cell Count 2.86 X10^6/uL (4.5-5.9); Red Cell Distribution Width 14.3 % (11.6-14.8); White Blood Cell Count 10.6 X10^3/uL (4.5-11.0)
[2022-01-21 05:57] LABS: Alanine Aminotransferase 7 IU/L (<50); Albumin 2.7 g/dL (3.5-5.0); Alkaline Phosphatase 58 U/L (38-126); Aspartate Aminotransferase 13 IU/L (17-59); BUN Creatinine Ratio 10.1 (6-22); Bilirubin Total 0.2 mg/dL (0.2-1.3); Blood Urea Nitrogen 8 mg/dL (9-20); Calcium 7.3 mg/dL (8.4-10.2); Carbon Dioxide 26 mmol/L (22-32); Chloride 113 mmol/L (98-107); Estimated Glomerular Filt Rate > 60 mL/min (>60); Globulin 2.7 g/dL (1.7-4.1); Glucose 89 mg/dL (80-110); HEMOLYSIS < 15 (0-50); Potassium 3.6 mmol/L (3.4-5.1); Sodium 142 mmol/L (137-145); Total Protein 5.4 g/dL (6.3-8.2)
[2022-01-21] MEDS: HYDROMORPHONE 4 MG TABLET 8 MG PO ×3 (09:07→19:35)
[2022-01-21] MEDS: SOLIFENACIN 5 MG TABLET 10 MG PO (09:08)
[2022-01-21] MEDS: buPROPion SR 100 MG TAB 200 MG PO ×2 (09:08→22:08)
[2022-01-21] MEDS: TIZANIDINE 4 MG TABLET PO ×3 (09:08→22:09)
[2022-01-21] MEDS: LORATADINE 10 MG TABLET PO (09:08)
[2022-01-21] MEDS: BUSPIRONE 5 MG TABLET 15 MG PO ×3 (09:08→22:08)
[2022-01-21] MEDS: FLUTICASONE 120 SPRAY/16 GM SPRAY.SUSP NASAL ×2 (09:08→22:09)
--- NOTE | 2022-01-21 10:49 | PT.IIE ---
Medical History (Last Updated 01/20/22 @ 15:22 by Lisa Howell MD) Brain tumor (benign) History of pulmonary embolus (PE) Hyperlipemia, fat-induced Hypertension Stroke Physical Therapy Inpatient Evaluation/Re-Eval M1 PT/OT-IP Prior Functional Status Start: 01/21/22 08:52 Freq: NEEDED Status: Active Protocol: Document 01/21/22 10:49 AW (Rec: 01/21/22 13:12 AW [id number]) Medical Review Prior Functional Status Medical History Reviewed Yes Communication Pt is able to make needs known . Mobility and Gait Pt uses a hurry cane for all household and short distance community ambulation. He has a power scooter for longer distances. He denies regular falls Activities of Daily Living and IADL's Pt admits needing help to don socks, states he is independent with showering unless it's a rough day. Pt does not drive. His does all shopping, cooking, cleaning. Prior Functional Level (Other details) PMH includes CVA with right sided deficits and brain surgery for benign tumor. Social History Household Members spouse Living Arrangements Mobile home Number of Floors (Floors) One Floor Number of Stairs To Enter/Railing? Pt lives in a 30-foot travel trailer with 2 MAIA and L rail ascending Home Environment Standard Height Toilet,Walk in Shower Home Equipment Four Wheel Walker,Power Wheelchair/Scooter,Shower Seat without Backrest Additional Social History Comment Pt has several hurry canes. He lives with his spouse, Lewis, in a travel trailer currently parked in [place]. M2 PT-IP Current Condition Start: 01/21/22 08:52 Freq: NEEDED Status: Active Protocol: Document 01/21/22 10:49 AW (Rec: 01/21/22 13:12 AW [id number]) Physical Therapy Current Condition Current Condition Evaluation Date 01/21/22 Treatment Diagnosis falls, AMS, impaired mobility and gait Onset Date 01/20/22 M3 PT-IP Subjective Start: 01/21/22 08:52 Freq: NEEDED Status: Active Protocol: Document 01/21/22 10:49 AW (Rec: 01/21/22 13:12 AW [id number]) Subjective Physical Therapy Visit Type Type Initial Evaluation Visit Start Time 10:25 Visit Stop Time 10:49 Total Visit Minutes 24 Physical Therapy Visit Comments Patient Comments Pt is willing to participate with PT Patient Goals I hope they let me go home today. Therapy Pain Assessment Pain When Pain Assessed During Mobility Pain Present Pain Present Pain Reported Location Generalized Scale Used not quantified; primarily back pain M4 PT-IP Mobility and Gait Start: 01/21/22 08:52 Freq: NEEDED Status: Active Protocol: Document 01/21/22 10:49 AW (Rec: 01/21/22 13:12 AW [id number]) PT-Bed Mobility Assessment Supine to Sit Supine to Sit Minimal Assistance,1 Person Assistance Scooting Scooting to Edge of Bed Standby Assistance PT-Transfer Assessment Sit to and From Stand Sit to and from Stand Contact Guard Assistance, Minimal Assistance,1 Person Assistance,Use of Upper Extremities Equipment Transfer Assistive Device Gait Belt,Small Based Quad Cane Orthotic/Prosthetic Devices or Brace: No Transfers Transfer Destination Chair Transfer Technique Stand Step Pivot Transfer Ability Level of Assist Contact Guard Assistance Comments Mobility Comments Pt was lying in bed as PT arrived. BP 137/56 HR 92. He completed supine to sit min A and sat EOB with good seated balance. He stood and transferred CGA. He agreed to stand and ambulate, walking 30 feet in room with QC CGA/min A. He transferred to the chair and was positioned with call light and tray table in reach. BP was 154/76 HR 95 after activity. Gait Assessment Gait Gait Assistance Required: Contact Guard Assist,Minimum Assistance,1 Person Assist Distance (Feet) 30 Assistive Devices Assistive Device Gait Belt,Small Based Quad Cane Orthotic/Prosthetic Devices or Brace: No Gait Deviations General Gait Pattern Ataxic,Decreased Stride Length ,Decreased Feet Clearance, Lateral Trunk Lean,Wide Based Gait Factors Limiting Gait Function Factors Limiting Gait Function Decreased Sensation,Decreased Strength,Incoordination,Poor Balance Comments Gait Comments Impaired coordination and motor planning evident with RLE in gait. Step lengths inconsistent, widely variable. Stair Climbing Assessment Comments Stair Climbing Comments Not assessed. PT-Balance Assessment Sitting Balance and Reactions Static Sitting Balance Ability Good Dynamic Sitting Balance Ability Good Standing Balance and Reactions Static Standing Balance Ability Fair Dynamic Standing Balance Ability Poor Device Used QC M5 PT-IP Objective Assessments Start: 01/21/22 08:52 Freq: NEEDED Status: Active Protocol: Document 01/21/22 10:49 AW (Rec: 01/21/22 13:12 AW [id number]) Orientation Orientation/Cognition Level of Alertness Alert Orientation Name,Day of Week,Place, Situation Language Function Ability No Deficits Noted Safety Awareness Decreased Safety Awareness Gross Range of Motion Upper Extremity ROM Assessment Right Impaired Impairments RUE has enough rotation to reach behind head and behind back in spite of flexor tone. 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 Lower Extremity ROM Assessment Within Functional Limits Strength Lower Extremity Strength Assessment Within Functional Limits Comments Strength Comments L 4+/5; R 4-/5 Coordination Assessment Gross Coordination Gross Coordination Impaired Assessment Coordination Comments Right-sided impairments, unable to perform testing Sensation Assessment Sensation Gross Sensation Right UE Impaired,Right LE Impaired Light Touch Impaired Proprioception (Position) Impaired Muscle Tone Muscle Tone Location Right Upper Extremity Type of Tone Flexor Severity of Tone Moderate M6 PT-IP Treatment Start: 01/21/22 08:52 Freq: NEEDED Status: Active Protocol: Document 01/21/22 10:49 AW (Rec: 01/21/22 13:12 AW [id number]) Physical Therapy Treatment Education Education Provided Safety M7 PT-IP Assessment and Plan Start: 01/21/22 08:52 Freq: NEEDED Status: Active Protocol: Document 01/21/22 10:49 AW (Rec: 01/21/22 13:12 AW [id number]) PT Summary Assessment and Plan Potential Rehabilitation Potential Good Status of Condition at Evaluation Evolving Summary Impairments ROM,Strength,Balance, Coordination,Sensation,Tone, Bed Mobility,Transfers,Gait Assessment Summary Neo is a 66 yo man with PMH including CVA with right- sided deficits and left parietal lobe brain tumor resection. He is admitted with hematuria secondary to indwelling shepherd catheter, fall, and altered mental status. He uses a hurry cane for household mobility and a power scooter for longer distances. He requires some level of assist with ADL's. CLOF: Pt is able to walk short distances with quad cane (no tripod cane available) CGA/min A for balance support. It is possible that this is consistent with his baseline mobility. Will follow up at least one more visit to re- assess mobility including stairs. Pt is most likely safe to discharge home with assist . Will continue to assess and update discharge recommendation based on progress. Goals Bed Mobility Goal Independent Transfer Goal Standby Assistance,Cane Gait Goal Standby Assistance,Cane Gait Distance 75 Other Goals -- up/down 2 stairs with left rail ascending Days to Meet Goals 4 Frequency of Treatment Frequency Of Treatment Once a Day Treatment Plan Physical Therapy Treatment Plan Bed Mobility Training,Transfer Training,Gait Training, Therapeutic Exercise,Balance Retraining,Discharge Planning, Neuromuscular Re-ed Other Recommendations and Next Treatment re-assess gait with qc or Focus tripod cane if available; stairs Precautions Other Precautions falls Recommendations To Nursing Amount of Assist Needed 1 Person Assist Discharge Recommendations PT Discharge Recommendations Home with Assistance Transportation Needs at Discharge Private Vehicle
--- NOTE | 2022-01-21 13:53 | CM.DANOTE ---
Patient is a 66 yo male who was admitted on 01/20/22 for Fall/ r/o CVA. Pt has [employer] for insurance and his PCP is [facility]. EMR was reviewed. Per MD, pt with GLF and AMS and has indwelling shepherd cath at baseline with hematuria since placement and admitted for acute anemia. PT ordered and worked with pt and recommending safe d/c home when stable. SW met bedside with pt and explained role and pt confirms that he is living in an in [facility] with his spouse and adult Dtr who is 24 yo. Pt denies any hx of HH or SNF and states he is independent with ADL's at baseline. Pt states he is hopeful to d/c home tonight as he has a scheduled apt with his Urologist at [facility] tomorrow [facility] 01/22/22. Pt states he feels back to baseline and has family available to assist and denies any HH needs at this time. Pt states his [place] address is just his mailing address. Plan: SW to follow closely for possible d/c home tonight vs tomorrow when medically stable via spouse POV and pt declines any further SW needs at this time. GISSELLE Bauer Discharge Planning/Care Management CM Discharge Assessment Start: 01/21/22 13:52 Freq: Status: Active Protocol: Document 01/21/22 13:52 BF (Rec: 01/21/22 13:53 BF [id number]) Discharge Planning Assessment Assigned Goggles Assembler GISSELLE Parkinson DPOA/Assigned Designee Name informally spouse Lewis Advance Directives? No Advance Directives on File No History Provided By Patient,Medical Record Has Patient been admitted in last 30 No days? Prior Living Arrangements Mobile home Household Members spouse,children Type of transporation used prior to Drives own vehicle admit Independent with ADL's Yes Is patient alert and oriented? Yes Caregiver for Another No Barriers to Discharge No Discharge Plan Home Transportation Arrangement Pt states spouse can drive their vehicle over and provide transport Referrals Initiated None needed Additional Comment Declines HH Whiteboard Updated in Patient Room with Yes name and ext. # of Goggles Assembler Review Status In Process Please Provide Date Initial DC 01/21/22 Assessment Was Performed Next Review Type Continued Stay Review
[2022-01-21] MEDS: levoFLOXacin 500 MG/100 ML PIGGYBACK 100 MG IV (14:40)
[2022-01-21] MEDS: RIVAROXABAN 10 MG TABLET 20 MG PO (16:38)
[2022-01-21] MEDS: lisinopriL 20 MG TABLET 40 MG PO (16:38)
[2022-01-21] MEDS: DULOXETINE 30 MG CAPSULE 60 MG PO (16:39)
[2022-01-21] MEDS: ATORVASTATIN 20 MG TABLET PO (16:39)
[2022-01-21] MEDS: METOPROLOL ER 50 MG TABLET 100 MG PO (16:39)
[2022-01-21] MEDS: ARIPiprazole 10 MG TABLET 5 MG PO (16:39)
--- NOTE | 2022-01-21 16:41 | P.PN_ITS ---
Subjective Subjective Date Patient Seen: 01/21/22 Interval history: 66-year-old man with known radiation proctitis, a chronic indwelling Montanez catheter, who presented yesterday with hypotension, confusion, urinary tract infection. Today the urine has cleared up significantly. There is no further hematuria. With IV hydration his blood pressure is improved. H&H is stabilized. Exam Vital Signs (past 8 hours): - 01/21/22 08:49 01/21/22 12:33 Temperature 97.4 F L 96.7 F L Pulse Rate 93 H 80 Respiratory Rate 16 18 Blood Pressure 137/56 L 129/60 Pulse Oximetry 93 94 Oxygen Delivery Method Room Air Oxygen Flow Rate 0 Narrative Exam Narrative: Pleasant gentleman sitting in a chair awake alert appropriate Resp Other: Lungs clear to auscultation Cardio Other: Cardiac exam: Regular rate and rhythm normal S1-S2 GI Other: Abdomen soft nontender nondistended Other: Montanez catheter in place Extrem Other: Extremities: No edema Objective Labs Result Diagrams: 01/21/22 05:30 01/21/22 05:30 Labs: Laboratory Results - last 24 hr 01/21/22 01/21/22 05:30 05:30 WBC 10.6 RBC 2.86 L Hgb 8.4 L Hct 25.7 L MCV 90.1 MCH 29.4 MCHC 32.6 RDW 14.3 Plt Count 368 Neut % (Auto) 53.7 Lymph % (Auto) 28.0 [place] % (Auto) 12.4 Eos % (Auto) 5.0 H Baso % (Auto) 0.9 Neut # (Auto) 5700 Lymph # (Auto) 3000 [place] # (Auto) 1300 H Eos # (Auto) 500 H Baso # (Auto) 100 Sodium 142 Potassium 3.6 Chloride 113 H Carbon Dioxide 26 BUN 8 L Creatinine 0.79 Estimated GFR > 60 BUN/Creatinine Ratio 10.1 Glucose 89 Calcium 7.3 L Total Bilirubin 0.2 AST 13 L ALT 7 Alkaline Phosphatase 58 Total Protein 5.4 L Albumin 2.7 L Globulin 2.7 Albumin/Globulin Ratio 1.0 [facility] Medical History (Updated 01/20/22 @ 16:34 by Gina Morataya MD) Brain tumor (benign) History of pulmonary embolus (PE) Hyperlipemia, fat-induced Hypertension Stroke Surgical History (Updated 01/20/22 @ 15:22 by Lisa Howell MD) H/O brain surgery Family History (Updated 01/20/22 @ 15:23 by Lisa Howell MD) Father Cancer Mother Cancer Social History household members: spouse and children Smoking Status: Former smoker Assessment & Plan Assessment & Plan narrative: 1. 66-year-old male admitted to the hospital with sepsis secondary to urinary tract infection, he presented with acute metabolic encephalopathy, hypotension, and fever * Urine cultures are growing Gram-negative rods, identification still pending * Blood cultures are negative * Patient is afebrile * Blood pressure has improved with IV hydration * Will continue levofloxacin, awaiting culture and sensitivity 2. Hypotension * Likely multifactorial, significantly related to volume depletion * And acute blood loss anemia 3. Acute blood loss anemia * No further hematuria * H&H stable 4. Radiation proctitis * Patient is scheduled to start hyperbaric oxygen for this within the next week 5. Hyperlipidemia * Continue stat 6. Hypertension * Continue lisinopril and metoprolol as he is no longer hypotensive 7. History of DVT * Okay to resume Xarelto as he is no longer bleeding 8. GERD * Continue PPI Time Spent With Patient Critical Care time: I spent a total of [] minutes of critical care time on this patient's care today; this time is exclusive of procedural time.
--- NOTE | 2022-01-21 18:26 | PC.NURSE ---
Addendum entered by Dunia Jonas R.N. 01/21/22 18:55: After discussing the situation with dayshift and nightshift charge nurses, it was decided to move the dilaudid from the patient lock box to the safe. Medication was handed over to nightshift charge nurse at [address] in safe. Original Note: Pt's arrived this evening with nighttime dose of hydromorphone HCL ER 8mg, not stocked at the hospital but ordered for the pt. Pharmacy had already left for the day so [facility] was contacted ( ) to help with identification. This nurse obtained one pill in a plastic bag and described the pill to pharmacist Ludwig Fuller over the phone. The pill is circular, pink and had 266 printed on it. Per pill bottle, expiration date for pill is 01/15/2023. Pill was positively identified by previously mentioned pharmacist as Hydromorphone HCL ER 8mg as ordered for pt. Pill was labeled with patient label and medication name and securely locked in patient locked medication box. The bottle of pills was returned to pt's .
[2022-01-21] MEDS: diphenhydrAMINE 25 MG TABLET PO (22:09)
[2022-01-21] MEDS: SENNOSIDES DOCUSATE SODIUM 3 EACH PO (22:10)
[2022-01-21] MEDS: TRAZODONE 100 MG TABLET 300 MG PO (23:22)
[2022-01-21] MEDS: HYDROMORPHONE 8 MG 8 EACH PO (23:23)
[2022-01-22 04:06] VITALS: BP 141/72; PULSE 72; RESP 16; TEMP 36.7; O2SAT 94
[2022-01-22 06:58] VITALS: BP 137/70; PULSE 71; RESP 16; TEMP 37.2; O2SAT 92
[2022-01-22 07:47] LABS: Add Manual Diff / Slide Review NO; Basophils Absolute Auto 200 /uL (0-100); Basophils Percent Auto 1.7 % (0-2); Eosinophils Absolute Auto 800 /uL (0-450); Eosinophils Percent Auto 7.1 % (2-4); Hematocrit 27.6 % (41-53); Hemoglobin 9.1 g/dL (13.5-17.5); Lymphocytes Absolute Auto 2400 /uL (1100-4500); Lymphocytes Percent Auto 20.4 % (25-40); Mean Corpuscular Hemoglobin 29.3 PG (26-34); Mean Corpuscular Volume 88.7 fL (80-100); Monocytes Absolute Auto 1400 /uL (0-900); Monocytes Percent Auto 11.7 % (3-14); Neutrophils Absolute Auto 7000 /uL (1500-7000); Neutrophils Percent Auto 59.1 % (50-75); Platelet Count 398 X10^3/uL (150-400); Red Blood Cell Count 3.11 X10^6/uL (4.5-5.9); Red Cell Distribution Width 14.7 % (11.6-14.8); White Blood Cell Count 11.8 X10^3/uL (4.5-11.0)
[2022-01-22 07:57] LABS: BUN Creatinine Ratio 9.3 (6-22); Blood Urea Nitrogen 7 mg/dL (9-20); Carbon Dioxide 28 mmol/L (22-32); Chloride 112 mmol/L (98-107); Estimated Glomerular Filt Rate > 60 mL/min (>60); Glucose 91 mg/dL (80-110); HEMOLYSIS < 15 (0-50); Potassium 3.7 mmol/L (3.4-5.1); Sodium 141 mmol/L (137-145)
[2022-01-22] MEDS: buPROPion SR 100 MG TAB 200 MG PO (09:02)
[2022-01-22] MEDS: TIZANIDINE 4 MG TABLET PO ×2 (09:03→14:45)
[2022-01-22] MEDS: BUSPIRONE 5 MG TABLET 15 MG PO ×2 (09:03→14:43)
[2022-01-22] MEDS: LORATADINE 10 MG TABLET PO (09:03)
[2022-01-22] MEDS: FLUTICASONE 120 SPRAY/16 GM SPRAY.SUSP NASAL (09:04)
[2022-01-22] MEDS: HYDROMORPHONE 4 MG TABLET 8 MG PO ×2 (09:08→13:07)
[2022-01-22 10:06] VITALS: O2SAT 93
--- NOTE | 2022-01-22 11:13 | OT.IP.EVAL ---
Past Medical History (Last Updated 01/20/22 @ 15:22 by Lisa Howell MD) Brain tumor (benign) H/O brain surgery History of pulmonary embolus (PE) Hyperlipemia, fat-induced Hypertension Stroke Surgical History (Last Updated 01/20/22 @ 15:22 by Lisa Howell MD) H/O brain surgery Occupational Therapy Inpatient Evaluation/Re-Eval M1 PT/OT-IP Prior Functional Status Start: 01/21/22 08:52 Freq: NEEDED Status: Active Protocol: Document 01/22/22 16:02 CGR (Rec: 01/22/22 16:16 CGR [id number]) Medical Review Prior Functional Status Medical History Reviewed Yes Communication Pt is able to make needs known . Mobility and Gait Pt uses a hurry cane for all household and short distance community ambulation. He has a power scooter for longer distances. He denies regular falls Activities of Daily Living and IADL's Pt admits needing help to don socks, states he is independent with showering unless it's a rough day. Pt does not drive. His does all shopping, cooking, cleaning. Prior Functional Level (Other details) PMH includes CVA with right sided deficits and brain surgery for benign tumor. Social History Household Members spouse,children Living Arrangements Mobile home Number of Floors (Floors) One Floor Number of Stairs To Enter/Railing? Pt lives in a 30-foot travel trailer with 2 MAIA and L rail ascending Home Environment Standard Height Toilet,Walk in Shower Home Equipment Four Wheel Walker,Power Wheelchair/Scooter,Shower Seat without Backrest Additional Social History Comment Pt has several hurry canes. He lives with his spouse, Lewis, in a travel trailer currently parked in [place]. M1 PT/OT-IP Prior Functional Status Start: 01/22/22 16:02 Freq: NEEDED Status: Active Protocol: Document 01/22/22 16:02 CGR (Rec: 01/22/22 16:16 CGR [id number]) Medical Review Prior Functional Status Medical History Reviewed Yes Communication Pt is able to make needs known . Mobility and Gait Pt uses a hurry cane for all household and short distance community ambulation. He has a power scooter for longer distances. He denies regular falls Activities of Daily Living and IADL's Pt admits needing help to don socks, states he is independent with showering unless it's a rough day. Pt does not drive. His does all shopping, cooking, cleaning. Prior Functional Level (Other details) PMH includes CVA with right sided deficits and brain surgery for benign tumor. Social History Household Members spouse,children Living Arrangements Mobile home Number of Floors (Floors) One Floor Number of Stairs To Enter/Railing? Pt lives in a 30-foot travel trailer with 2 MAIA and L rail ascending Home Environment Standard Height Toilet,Walk in Shower Home Equipment Four Wheel Walker,Power Wheelchair/Scooter,Shower Seat without Backrest Additional Social History Comment Pt has several hurry canes. He lives with his spouse, Lewis, in a travel trailer currently parked in [place]. M2 OT-IP Current Condition Start: 01/22/22 16:02 Freq: Status: Active Protocol: Document 01/22/22 16:02 CGR (Rec: 01/22/22 16:16 CGR [id number]) Occupational Therapy Current Condition Current Condition Evaluation Date 01/22/22 Treatment Diagnosis Fall, UTI, Hematuria Diagnosis Onset Date 01/20/22 M3 OT- IP Subjective and Pain Start: 01/22/22 16:02 Freq: Status: Active Protocol: Document 01/22/22 16:02 CGR (Rec: 01/22/22 16:16 CGR [id number]) OT- Subjective Occupational Therapy Visit Type Type Initial Evaluation Visit Start Time 10:50 Visit Stop Time 11:13 Total Visit Minutes 23 Notes This typewriter repairer returned later in day to address shower concerns from the pt's . Pt's was requesting that pt have a shower prior to discharge and notified assistant director of nursing of that request. OT Pain Assessment Pain When Pain Assessed At Rest Pain Present Pain Present Pain Reported Location Lower Back Intensity 4 Scale Used Numeric (0 - 10) Management Techniques Distraction,Modification of Treatment,Re-positioning M4 OT- IP ADL's Start: 01/22/22 16:02 Freq: Status: Active Protocol: Document 01/22/22 16:02 CGR (Rec: 01/22/22 16:16 CGR [id number]) OT [id number] Comments OT Self-Feeding Comments not meal time OT ADL-Grooming General Evaluation Grooming Ability Independent Areas Needing Assistance Face Washing Comments OT Grooming Comments Pt washed face standing at sink and declined to brush hair d/t new stitches and blood in his hair. OT ADL-Oral Care General Eval Oral Care Ability Standby Assistance Comments Oral Care Comments Pt request mouth wash as he left his dentures at home. OT ADL-Dressing General Eval Lower Body Dressing Ability Total Assistance Areas Needing Assistance Socks Comments OT Dressing Comments Pt states his performs for him OT ADL-Toileting General Evaluation Toileting Ability Total Assistance Comments OT Toileting Comments pt with shepherd. Pt has had shepherd for the last 2 months. OT ADL-Bathing Comments OT Bathing Comments not performed M5 OT- IP IADL's Start: 01/22/22 16:02 Freq: Status: Active Protocol: Document 01/22/22 16:02 CGR (Rec: 01/22/22 16:16 CGR [id number]) OT-Instrumental Activities of Daily Living Deficits IADL Deficits Identified No Deficits Home Safety Awareness Awareness of Need for Assistance at Home Good Awareness Ability to Problem Solve Emergency Able to Problem Solve Situations Medication Management Medication Management Caregiver Administers Money Management Money Management Caregiver Provides Assistance Meal Preparation Meal Preparation Caregiver Provides Assist Drupal Programmer Drupal Programmer Caregiver Provides Assist Driving Driving Comments Pt does not drive. Pt's does all driving. M6 OT- IP Functional Cognition Start: 01/22/22 16:02 Freq: Status: Active Protocol: Document 01/22/22 16:02 CGR (Rec: 01/22/22 16:16 CGR [id number]) Cognitive Factors Limiting Selfcare Function Cognitive Ability Level of Alertness Alert Patient Orientation Name,Age,Birthday,Month,Date, Year,Day of Week,Place, Situation Attention Span Ability Capable of Focused Attention, Capable of Sustained Attention Ability to Follow Commands Able to Follow One Step Commands with Increased Time, Able to Follow One Step Commands with Repetition OT- Vision and Hearing OT- Hearing Assessment OT- Hearing Assessment WFL OT- Vision Assessment Visual Acuity Glasses All The Time Visual Attentiveness WFL Occular Pursuits WFL Visual Convergence WFL Vision Assessment Comments Pt states that he has R sided visual loss. M7 OT- IP Mobility and Balance Start: 01/22/22 16:02 Freq: Status: Active Protocol: Document 01/22/22 16:02 CGR (Rec: 01/22/22 16:16 CGR [id number]) OT- Bed Mobility Assessment Supine to Sit Supine to Sit Assist Standby Assistance Scooting Scooting to Edge of Bed Standby Assistance OT-Transfer Assessment Sit to and From Stand Sit to and from Stand Standby Assistance Transfers Transfer Ability Standby Assistance Technique Transfer Destination Bed,Chair Transfer Technique Stand Step Pivot Devices Transfer Assistive Devices Gait Belt Comments Mobility Comments Gait belt and pt's hurry cane. OT- Balance Assessment Sitting Balance and Reactions Static Sitting Balance Ability Normal Dynamic Sitting Balance Ability Good M8 OT- IP Objective Assessments Start: 01/22/22 16:02 Freq: Status: Active Protocol: Document 01/22/22 16:02 CGR (Rec: 01/22/22 16:16 CGR [id number]) OT Gross Range of Motion Upper Extremity Range of Motion Assessment Right Impaired ROM Impairments slightly restricted at all joints vs L which is WFL OT Strength Upper Extremity Strength Assessment Right Impaired Comments Strength Comments RUE grossly 4/5 LUE 4+/5 OT- Coordination Assessment Upper Extremity Finger to Nose Test Right UE Impaired Finger Tapping Test Right UE Impaired OT-Muscle Tone Assessment Muscle Tone WNL No Muscle Tone Location Right Upper Extremity Type of Tone Flexor Severity of Tone Mild OT Sensation Assessment Edema Edema Absent M9 OT- IP Assessment and Plan Start: 01/22/22 16:02 Freq: Status: Active Protocol: Document 01/22/22 16:02 CGR (Rec: 01/22/22 16:16 CGR [id number]) OT Summary Assessment and Plan Potential Rehabilitation Potential Excellent Analytic Complexity at Evaluation High Summary OT Impairments Pain,Range of Motion, Coordination,Sensation,Tone, Functional Mobility,Grooming, Dressing,Toileting,Bathing, Toilet Transfers,Shower Transfers,Activity Tolerance Progress Towards Goals Safe For Discharge,Goals Met Assessment Summary Pt presents as a high complexity evaluation s/p admit for Fall, UTI, and hematuria. Pt has a hx of CVa but appears to be at or near his baseline for ADls and functional mobility at this time. No further OT needs. Frequency of Treatment Frequency Of Treatment Discharge Discharge Recommendations OT Discharge Recommendations Home with Assistance Transportation Needs at Discharge Private Vehicle
--- NOTE | 2022-01-22 11:44 | PT.IPTN ---
Physical Therapy Treatment Note M2 PT-IP Current Condition Start: 01/21/22 08:52 Freq: NEEDED Status: Active Protocol: Document 01/22/22 11:21 SP (Rec: 01/22/22 15:54 SP [id number]) Physical Therapy Current Condition Current Condition Evaluation Date 01/21/22 Treatment Diagnosis falls, AMS, impaired mobility and gait Onset Date 01/20/22 M3 PT-IP Subjective Start: 01/21/22 08:52 Freq: NEEDED Status: Active Protocol: Document 01/22/22 11:21 SP (Rec: 01/22/22 15:54 SP [id number]) Subjective Physical Therapy Visit Type Type Treatment Note Visit Start Time 11:21 Visit Stop Time 11:44 Total Visit Minutes 23 Notes Vitals taken pre activity: BP 124/64, HR 82, SaO2 92% on RA. Number of HOTEL OPERATIONS MANAGER Visits 1 Physical Therapy Visit Comments Patient Comments Pt willing to work with therapy including stair assessment. Patient Goals Wanting to return to travel trailer with to assist him. Therapy Pain Assessment Pain Present Pain Present Denied Pain M4 PT-IP Mobility and Gait Start: 01/21/22 08:52 Freq: NEEDED Status: Active Protocol: Document 01/22/22 11:21 SP (Rec: 01/22/22 15:54 SP [id number]) PT-Bed Mobility Assessment Supine to Sit Supine to Sit Standby Assistance Sit to Supine Sit to Supine Standby Assistance Scooting Scooting to Edge of Bed Independent PT-Transfer Assessment Sit to and From Stand Sit to and from Stand Contact Guard Assistance, Minimal Assistance,1 Person Assistance,Use of Upper Extremities Equipment Transfer Assistive Device Gait Belt,Straight Cane Orthotic/Prosthetic Devices or Brace: No Transfers Transfer Destination Bed,Chair,Wheelchair Transfer Technique pt ambulated using personal tall Hurry cane Transfer Ability Level of Assist Contact Guard Assistance, Minimal Assistance,1 Person Assistance,Use of Upper Extremities Comments Mobility Comments Pt was seated in chair when arrived. Completed scoot to EOchair sBA UEs on chair arm, sit>Stand Cg-Min A w/ tall personal hurry cane in LUE progressed gait across room to w/c out in hallway approx 20 ft CG- Min A occasional cues with improved upright posture, RLE advancement foot clearance and stride step to w / quad fac during mid stance phase, better gait holding upper handle on hurry can vs flat handle typical of a SPC/ QC. Step pivot back full to w/ c cued RLE fully until feel chair behind knee and slow descent sit w/c. HOTEL OPERATIONS MANAGER wheeled pt to stairs, pt completed w/c brake mgt, sit>Stand 10%A wt shift forward and balance stability into standing, 5 step to stairs, note R foot slipper slides forward/ laterally during midstance at times if not upright posture direct WB over RLE. CUed even wt between BLE. Pt states broke AFO has for RLE and waiting for it to be fixed at [facility]. Pt completed 3 stairs LUE on L HR step to CG- Min A ascend, Min-Mod A descend BUE on R HR, no LOB. Pt progressed gait w/ tall hurry cane stagger step (not fully step over step) 50 ft, increased more forward/ L lean and LUE WB on Hurry cane with decreased RLE foot clearance as distance progresed and forward posture as distance, HOTEL OPERATIONS MANAGER provided Min- Mod A x1 and managed w/c follow, cued for self postural corrections, found challenging decreased strength and activity tolerance. Pt states not used to walking that far, has power w/c for longer distances. HOTEL OPERATIONS MANAGER wheeled pt back to room. Sit> stand, gait to R EOB CG- Min A w/ hurrycane Sit<>Supine SBA. Step pivot transfer bed>chair reaching across opposite arm rest, CGA-5%A. Pt had call light and all needs in reach. Pt stated still not back to baseline, assisted as needed at home but able to do more. Pt called , HOTEL OPERATIONS MANAGER and pt discussed assist requiring throughout tx. HOTEL OPERATIONS MANAGER recommending home with 24/7 assist HHPT vs SNF and requesting CGT in am with at 10am for safety awareness if can assist him. states has had previous surgeries on Bhands and not able give alot physical assist but daughter is available if needed and assisted pt in past but not sure if available today to help. Gait Assessment Gait Gait Assistance Required: Contact Guard Assist,Minimum Assistance,1 Person Assist Distance (Feet) 50 Assistive Devices Assistive Device Gait Belt,Straight Cane Orthotic/Prosthetic Devices or Brace: No Gait Deviations General Gait Pattern Ataxic,Decreased Stride Length ,Decreased Feet Clearance, Lateral Trunk Lean,Wide Based Gait Factors Limiting Gait Function Factors Limiting Gait Function Decreased Activity Tolerance, Decreased Strength, Incoordination,Poor Balance, Poor Safety Awareness Comments Gait Comments Impaired Step lengths inconsistent in RLE, widely variable. see mobility comments Stair Climbing Assessment Evaluation Level of Assist On Stairs Minimal Assistance,1 Person Assistance Devices Stair Climbing Assistive Devices Left Railing Technique/Endurance Stair Climbing Direction Ascend and Descend Stair Climbing Technique Step to Step Number of Steps Climbed 3 Stair Climbing Set # Repetitions (reps) 1 Comments Stair Climbing Comments see mobility comments PT-Balance Assessment Sitting Balance and Reactions Static Sitting Balance Ability Normal Dynamic Sitting Balance Ability Good Standing Balance and Reactions Static Standing Balance Ability Good Dynamic Standing Balance Ability Fair Device Used Tall personal hurry cane M5 PT-IP Objective Assessments Start: 01/21/22 08:52 Freq: NEEDED Status: Active Protocol: Document 01/21/22 10:49 AW (Rec: 01/21/22 13:12 AW [id number]) Orientation Orientation/Cognition Level of Alertness Alert Orientation Name,Day of Week,Place, Situation Language Function Ability No Deficits Noted Safety Awareness Decreased Safety Awareness Gross Range of Motion Upper Extremity ROM Assessment Right Impaired Impairments RUE has enough rotation to reach behind head and behind back in spite of flexor tone. 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 Lower Extremity ROM Assessment Within Functional Limits Strength Lower Extremity Strength Assessment Within Functional Limits Comments Strength Comments L 4+/5; R 4-/5 Coordination Assessment Gross Coordination Gross Coordination Impaired Assessment Coordination Comments Right-sided impairments, unable to perform testing Sensation Assessment Sensation Gross Sensation Right UE Impaired,Right LE Impaired Light Touch Impaired Proprioception (Position) Impaired Muscle Tone Muscle Tone Location Right Upper Extremity Type of Tone Flexor Severity of Tone Moderate M6 PT-IP Treatment Start: 01/21/22 08:52 Freq: NEEDED Status: Active Protocol: Document 01/22/22 11:21 SP (Rec: 01/22/22 15:54 SP [id number]) Physical Therapy Treatment Education Education Provided Safety M7 PT-IP Assessment and Plan Start: 01/21/22 08:52 Freq: NEEDED Status: Active Protocol: Document 01/22/22 11:21 SP (Rec: 01/22/22 15:54 SP [id number]) PT Summary Assessment and Plan Potential Rehabilitation Potential Good Status of Condition at Evaluation Evolving Summary Impairments ROM,Strength,Balance, Coordination,Sensation,Tone, Bed Mobility,Transfers,Gait Progress Towards Goals Progressing Toward Goals,Slow Progress due to Activity Tolerance Assessment Summary Pt unable to use RUE for transfers or gait use of FWW. He is requiring CG- MIn A during transfers, Gait Min - Mod A for trunk stability w/ tall personal hurry cane, stair mgt Min A w/ LHR of which may not be able to assist at this time. Requesting am CGT at 10 for safety assessment. HOTEL OPERATIONS MANAGER recommending home 24/7 HHPT vs SNF to progress strength, activity tolerance toward functional independance. Will continue to assess progress. Goals Bed Mobility Goal Independent Transfer Goal Standby Assistance,Cane Gait Goal Standby Assistance,Cane Gait Distance 75 Other Goals -- up/down 2 stairs with left rail ascending Days to Meet Goals 4 Frequency of Treatment Frequency Of Treatment Once a Day Treatment Plan Physical Therapy Treatment Plan Bed Mobility Training,Transfer Training,Gait Training, Therapeutic Exercise,Balance Retraining,Discharge Planning, Neuromuscular Re-ed Other Recommendations and Next Treatment Continue transfers and gait w/ Focus tall personal hurry cane further distance, CGT with 10 am 01/22 including stair mgt. Precautions Other Precautions falls Recommendations To Nursing Amount of Assist Needed 1 Person Assist Discharge Recommendations PT Discharge Recommendations Home with 29/04 Assist Available,Home Health,SNF Rehab,Home vs SNF Transportation Needs at Discharge Private Vehicle,Wheelchair/ Cabulance
--- NOTE | 2022-01-22 11:44 | PT.IPTN ---
Physical Therapy Treatment Note M2 PT-IP Current Condition Start: 01/21/22 08:52 Freq: NEEDED Status: Active Protocol: Document 01/22/22 11:21 SP (Rec: 01/22/22 15:54 SP [id number]) Physical Therapy Current Condition Current Condition Evaluation Date 01/21/22 Treatment Diagnosis falls, AMS, impaired mobility and gait Onset Date 01/20/22 M3 PT-IP Subjective Start: 01/21/22 08:52 Freq: NEEDED Status: Active Protocol: Document 01/22/22 11:21 SP (Rec: 01/22/22 15:54 SP [id number]) Subjective Physical Therapy Visit Type Type Treatment Note Visit Start Time 11:21 Visit Stop Time 11:44 Total Visit Minutes 23 Notes Vitals taken pre activity: BP 124/64, HR 82, SaO2 92% on RA. Number of FORMAL SERVICE WAITER Visits 1 Physical Therapy Visit Comments Patient Comments Pt willing to work with therapy including stair assessment. Patient Goals Wanting to return to travel trailer with to assist him. Therapy Pain Assessment Pain Present Pain Present Denied Pain M4 PT-IP Mobility and Gait Start: 01/21/22 08:52 Freq: NEEDED Status: Active Protocol: Document 01/22/22 11:21 SP (Rec: 01/22/22 15:54 SP [id number]) PT-Bed Mobility Assessment Supine to Sit Supine to Sit Standby Assistance Sit to Supine Sit to Supine Standby Assistance Scooting Scooting to Edge of Bed Independent PT-Transfer Assessment Sit to and From Stand Sit to and from Stand Contact Guard Assistance, Minimal Assistance,1 Person Assistance,Use of Upper Extremities Equipment Transfer Assistive Device Gait Belt,Straight Cane Orthotic/Prosthetic Devices or Brace: No Transfers Transfer Destination Bed,Chair,Wheelchair Transfer Technique pt ambulated using personal tall Hurry cane Transfer Ability Level of Assist Contact Guard Assistance, Minimal Assistance,1 Person Assistance,Use of Upper Extremities Comments Mobility Comments Pt was seated in chair when arrived. Completed scoot to EOchair sBA UEs on chair arm, sit>Stand Cg-Min A w/ tall personal hurry cane in LUE progressed gait across room to w/c out in hallway approx 20 ft CG- Min A occasional cues with improved upright posture, RLE advancement foot clearance and stride step to w / quad fac during mid stance phase, better gait holding upper handle on hurry can vs flat handle typical of a SPC/ QC. Step pivot back full to w/ c cued RLE fully until feel chair behind knee and slow descent sit w/c. FORMAL SERVICE WAITER wheeled pt to stairs, pt completed w/c brake mgt, sit>Stand 10%A wt shift forward and balance stability into standing, 5 step to stairs, note R foot slipper slides forward/ laterally during midstance at times if not upright posture direct WB over RLE. CUed even wt between BLE. Pt states broke AFO has for RLE and waiting for it to be fixed at [facility]. Pt completed 3 stairs LUE on L HR step to CG- Min A ascend, Min-Mod A descend BUE on R HR, no LOB. Pt progressed gait w/ tall hurry cane stagger step (not fully step over step) 50 ft, increased more forward/ L lean and LUE WB on Hurry cane with decreased RLE foot clearance as distance progresed and forward posture as distance, FORMAL SERVICE WAITER provided Min- Mod A x1 and managed w/c follow, cued for self postural corrections, found challenging decreased strength and activity tolerance. Pt states not used to walking that far, has power w/c for longer distances. FORMAL SERVICE WAITER wheeled pt back to room. Sit> stand, gait to R EOB CG- Min A w/ hurrycane Sit<>Supine SBA. Step pivot transfer bed>chair reaching across opposite arm rest, CGA-5%A. Pt had call light and all needs in reach. Pt stated still not back to baseline, assisted as needed at home but able to do more. Pt called , FORMAL SERVICE WAITER and pt discussed assist requiring throughout tx. FORMAL SERVICE WAITER recommending home with 24/7 assist HHPT vs SNF and requesting CGT in am with at 10am for safety awareness if can assist him. states has had previous surgeries on Bhands and not able give alot physical assist but daughter is available if needed and assisted pt in past but not sure if available today to help. Gait Assessment Gait Gait Assistance Required: Contact Guard Assist,Minimum Assistance,1 Person Assist Distance (Feet) 50 Assistive Devices Assistive Device Gait Belt,Straight Cane Orthotic/Prosthetic Devices or Brace: No Gait Deviations General Gait Pattern Ataxic,Decreased Stride Length ,Decreased Feet Clearance, Lateral Trunk Lean,Wide Based Gait Factors Limiting Gait Function Factors Limiting Gait Function Decreased Activity Tolerance, Decreased Strength, Incoordination,Poor Balance, Poor Safety Awareness Comments Gait Comments Impaired Step lengths inconsistent in RLE, widely variable. see mobility comments Stair Climbing Assessment Evaluation Level of Assist On Stairs Minimal Assistance,1 Person Assistance Devices Stair Climbing Assistive Devices Left Railing Technique/Endurance Stair Climbing Direction Ascend and Descend Stair Climbing Technique Step to Step Number of Steps Climbed 3 Stair Climbing Set # Repetitions (reps) 1 Comments Stair Climbing Comments see mobility comments PT-Balance Assessment Sitting Balance and Reactions Static Sitting Balance Ability Normal Dynamic Sitting Balance Ability Good Standing Balance and Reactions Static Standing Balance Ability Good Dynamic Standing Balance Ability Fair Device Used Tall personal hurry cane M5 PT-IP Objective Assessments Start: 01/21/22 08:52 Freq: NEEDED Status: Active Protocol: Document 01/21/22 10:49 AW (Rec: 01/21/22 13:12 AW [id number]) Orientation Orientation/Cognition Level of Alertness Alert Orientation Name,Day of Week,Place, Situation Language Function Ability No Deficits Noted Safety Awareness Decreased Safety Awareness Gross Range of Motion Upper Extremity ROM Assessment Right Impaired Impairments RUE has enough rotation to reach behind head and behind back in spite of flexor tone. 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 Lower Extremity ROM Assessment Within Functional Limits Strength Lower Extremity Strength Assessment Within Functional Limits Comments Strength Comments L 4+/5; R 4-/5 Coordination Assessment Gross Coordination Gross Coordination Impaired Assessment Coordination Comments Right-sided impairments, unable to perform testing Sensation Assessment Sensation Gross Sensation Right UE Impaired,Right LE Impaired Light Touch Impaired Proprioception (Position) Impaired Muscle Tone Muscle Tone Location Right Upper Extremity Type of Tone Flexor Severity of Tone Moderate M6 PT-IP Treatment Start: 01/21/22 08:52 Freq: NEEDED Status: Active Protocol: Document 01/22/22 11:21 SP (Rec: 01/22/22 15:54 SP [id number]) Physical Therapy Treatment Education Education Provided Safety M7 PT-IP Assessment and Plan Start: 01/21/22 08:52 Freq: NEEDED Status: Active Protocol: Document 01/22/22 11:21 SP (Rec: 01/22/22 15:54 SP [id number]) PT Summary Assessment and Plan Potential Rehabilitation Potential Good Status of Condition at Evaluation Evolving Summary Impairments ROM,Strength,Balance, Coordination,Sensation,Tone, Bed Mobility,Transfers,Gait Progress Towards Goals Progressing Toward Goals,Slow Progress due to Activity Tolerance Assessment Summary Pt unable to use RUE for transfers or gait use of FWW. He is requiring CG- MIn A during transfers, Gait Min - Mod A for trunk stability w/ tall personal hurry cane, stair mgt Min A w/ LHR of which may not be able to assist at this time. Requesting am CGT at 10 for safety assessment. FORMAL SERVICE WAITER recommending home 24/7 HHPT vs SNF to progress strength, activity tolerance toward functional independance. Will continue to assess progress. Goals Bed Mobility Goal Independent Transfer Goal Standby Assistance,Cane Gait Goal Standby Assistance,Cane Gait Distance 75 Other Goals -- up/down 2 stairs with left rail ascending Days to Meet Goals 4 Frequency of Treatment Frequency Of Treatment Once a Day Treatment Plan Physical Therapy Treatment Plan Bed Mobility Training,Transfer Training,Gait Training, Therapeutic Exercise,Balance Retraining,Discharge Planning, Neuromuscular Re-ed Other Recommendations and Next Treatment Continue transfers and gait w/ Focus tall personal hurry cane further distance, CGT with 10 am 01/23 including stair mgt. Precautions Other Precautions falls Recommendations To Nursing Amount of Assist Needed 1 Person Assist Discharge Recommendations PT Discharge Recommendations Home with 29/04 Assist Available,Home Health,SNF Rehab,Home vs SNF Transportation Needs at Discharge Private Vehicle,Wheelchair/ Cabulance
--- NOTE | 2022-01-22 13:03 | P.DS_ITS ---
History of Present Illness History of Present Illness Chief complaint: Fall/Stroke Narrative: 66 y/o male with a history of prior stroke, brain surgery, phrenic nerve paralysis, hypertension, hyperlipidiemia, PE, on xeralto brought in by Med[facility] following a fall and altered mental status. There was concern for a stroke, code stroke was called and patient brought for evaluation. Patient has had hematuria for 2 months with an indwelling shepherd catheter. He is followed by a Urologist at [facility] with plans for outpatient work up. He does not recall what happened today other than to say he fell. Upon arrival to the ED he was hypotensive and anemic. The patient was given IV hydration with improvement in h is blood pressure. He remains weak. Patient had a low grade fever of 99.6. Urine has been sent for culture. Patient initially ound to have an elevated WBC. H/H 8.7\27.4 down from . Patient was placed on antibiotics and is admitted for further evaluation. Discharge Providers Provider Date of admission: 01/20/22 14:40 Discharge Date: 01/22/22 Primary care physician: JOCY Howell Consults: 01/20/22 15:33 Consult to Occupational Therapy Evaluate & Treat Comment: Physician Instructions: Evaluate and treat Consult to Physical Therapy Evaluate & Treat Comment: Physician Instructions: Evaluate and Treat 01/20/22 15:49 Consult to Dietitian, Adult Routine Comment: Reason For Exam: unintentional weight loss Discharge provider: Lisa Howell MD Summary Hospital Course Discharge Diagnosis: 1. Sepsis manifested as acute encephalopathy, present on admission, now resolved 2. Pyelonephritis, with Gram-negative bacteria,secondary to proteus penneri 3. Fall with laceration 4. Hypertension 5. Hyperlipidemia 6. Hematuria, likely related to radiation cystitis, present on admission, now resolved 7. History of prostate cancer 8. History of pulmonary embolus, on Xarelto anticoagulation 9. Acute blood loss anemia, likely related to radiation cystitis, transfusion not required Hospital Course: Patient was admitted to the hospital with confusion, following a fall, associated hypotension, and acute pyelonephritis. He received IV antibiotics, IV fluids with improvement of his blood pressure. His confusion improved the following day as well. His blood cultures were negative, urine cultures grew Proteus pen RI, sensitive to levofloxacin for which the patient was on. He made steady improvement, his confusion resolved, blood pressure improved, hematuria resolved, patient is due for monthly Shepherd catheter change in we will exchange it. He was deemed appropriate for discharge will discharge home. Patient is to follow-up with urology for further evaluation as he was currently being evaluated for hyperbaric oxygen for his radiation cystitis. Status at Discharge Cognitive/behavioral status at discharge: oriented Functional status at discharge: independent ambulation Overall status at discharge: patient is progressing back to baseline Exam Vital Signs (past 8 hours): - 01/22/22 06:58 01/22/22 10:06 Temperature 98.9 F Pulse Rate 71 Respiratory Rate 16 Blood Pressure 137/70 Pulse Oximetry 92 93 Oxygen Delivery Method Room Air Oxygen Flow Rate 0 Narrative Exam Narrative: Pleasant gentleman resting comfortably in no obvious distress Resp Other: Lungs: Clear to auscultation Cardio Other: Cardiac exam: Regular rate and rhythm normal S1-S2 GI Other: Abdomen: Soft nontender nondistended Other: Chronic Shepherd in place Extrem Other: No edema Psych Other: Normal mentation, normal thought process and thought content, patient has good judgment, appearance appears normal Objective Labs Result Diagrams: 01/22/22 07:35 01/22/22 07:35 Labs: Laboratory Results - last 24 hr 01/22/22 01/22/22 07:35 07:35 WBC 11.8 H RBC 3.11 L Hgb 9.1 L Hct 27.6 L MCV 88.7 MCH 29.3 MCHC 33.0 RDW 14.7 Plt Count 398 Neut % (Auto) 59.1 Lymph % (Auto) 20.4 L Park % (Auto) 11.7 Eos % (Auto) 7.1 H Baso % (Auto) 1.7 Neut # (Auto) 7000 Lymph # (Auto) 2400 [place] # (Auto) 1400 H Eos # (Auto) 800 H Baso # (Auto) 200 H Sodium 141 Potassium 3.7 Chloride 112 H Carbon Dioxide 28 BUN 7 L Creatinine 0.75 Estimated GFR > 60 BUN/Creatinine Ratio 9.3 Glucose 91 Calcium 8.0 L [facility] [place] Medical History (Updated 01/20/22 @ 16:34 by Gina Morataya MD) Brain tumor (benign) History of pulmonary embolus (PE) Hyperlipemia, fat-induced Hypertension Stroke Surgical History (Updated 01/20/22 @ 15:22 by Lisa Howell MD) H/O brain surgery Family History (Updated 01/20/22 @ 15:23 by Lisa Howell MD) Father Cancer Mother Cancer Social History household members: spouse and children Smoking Status: Former smoker Discharge Assessment & Plan Assessment and Plan Assessment: 1. Sepsis manifested as acute encephalopathy, present on admission, now resolved 2. Pyelonephritis, with Gram-negative bacteria,secondary to proteus penneri 3. Fall with laceration 4. Hypertension 5. Hyperlipidemia 6. Hematuria, likely related to radiation cystitis, present on admission, now resolved 7. History of prostate cancer 8. History of pulmonary embolus, on Xarelto anticoagulation 9. Acute blood loss anemia, likely related to radiation cystitis, transfusion not required Plan of Treatment: Discharge home, f/u with Urology Discharge Plan Discharge Plan Patient Disposition: Home Discharge orders & Medications Prescriptions: New levofloxacin 500 mg tablet 500 mg PO DAILY Qty: 7 0RF Continued atorvastatin 20 mg Tablet 20 mg PO QPM 0RF tizanidine 4 mg Tablet 4 mg PO TID 0RF hydromorphone 8 mg Tablet 8 mg PO Q6H 0RF sennosides-docusate sodium [Senna with Docusate Sodium] 8.6-50 mg Tablet 3 - 6 tab-cap PO BEDTIME PRN (Reason: Constipation) 0RF metoprolol succinate 100 mg Tablet Extended Release 24 Hr 100 mg PO 1700 0RF trazodone 100 mg Tablet 300 mg PO 2200 0RF diphenhydramine HCl 25 mg Tablet 25 - 50 mg PO Q4HR PRN (Reason: Allergy Symptoms) 0RF omeprazole 20 mg Capsule,Delayed Release(Dr/Ec) 20 mg PO DAILY PRN (Reason: Acid Reflux) 0RF lisinopril 40 mg Tablet 40 mg PO 1700 0RF fluticasone propionate 50 mcg/actuation [place],Suspension 2 spray INTRANASAL BID 0RF Rx Instructions: administer into each nostril loratadine 10 mg Tablet 10 mg PO DAILY 0RF buspirone 15 mg Tablet 15 mg PO TID 0RF bupropion HCl 200 mg Tablet Sustained-Release 12 Hr 200 mg PO BID 0RF aripiprazole 5 mg Tablet 5 mg PO 1700 0RF duloxetine 60 mg Capsule,Delayed Release(Dr/Ec) 60 mg PO 1700 0RF solifenacin 10 mg Tablet 10 mg PO Q OTHER DAY 0RF hydromorphone 8 mg Tablet Extended Release 24 Hr 8 mg PO 2200 0RF Xarelto 20 mg Tablet 20 mg PO 1700 0RF Rx Instructions: must administer with evening meal Follow up/Referrals: Michele Lilly ARNP [Primary Care Provider] - Discharge Health Status Multidrug resistant organism: No MDRO Diet/Activity/Treatments Diet: Low-sodium and Low-cholesterol Activity: as tolerated Catheter: 2-way Shepherd Discharge Data Primary Care Provider: Michele Lilly
[2022-01-22] MEDS: levoFLOXacin 500 MG/100 ML PIGGYBACK 100 MG IV (14:49)
[2022-01-22] MEDS: LIDOCAINE 2% (GLYDO) 6 ML GEL TOP (15:34)
[2022-01-22 16:01] VITALS: BP 176/84; PULSE 80
[2022-01-22] MEDS: lisinopriL 20 MG TABLET 40 MG PO (16:01)
[2022-01-22] MEDS: METOPROLOL ER 50 MG TABLET 100 MG PO (16:01)
[2022-01-22] MEDS: DULOXETINE 30 MG CAPSULE 60 MG PO (16:02)
[2022-01-22] MEDS: RIVAROXABAN 10 MG TABLET 20 MG PO (16:02)
[2022-01-22] MEDS: ATORVASTATIN 20 MG TABLET PO (16:02)
[2022-01-22] MEDS: ARIPiprazole 10 MG TABLET 5 MG PO (16:18)
--- NOTE | 2022-01-22 16:37 | PC.NURSE ---
Pt received sleeping, reports he felt he was awakened every hour during the night and allowed him to sleep until about 9 a.m. He is able to eat breakfast and work with PT/OT. He is given is 8mg dilauded prn per request q 4 hours this shift. He reports adequate pain control. Lab notifies RN of bacteria found from urine cultures and RN reported to MD. Per patient request MD orders Montanez catheter change (22 gauge, non latex catheter used) He tolerated this well with Glydo (lidocaine) He is given last IV dose of levaquin. He is cleared for discharge home with his after his requested shower. Education provided about urinary tract infections and Montanez care. His at bedside and patient verbalize understanding of discharge instructions and follow up appointment with urology as well as getting his samuel out with a follow up appointment with urology.
== END 2022-01-22 16:40 | disposition home or self-care (01) | DRG 698 ==
LOC: ED 14:12 → AC 14:41
PROVIDERS: Emergency Medicine; Admitting Provider Internal Medicine; Emergency Provider Emergency Medicine; PCP Nurse Practitioner Family; Referring Provider Emergency Medicine; Visit Provider Internal Medicine
DX: T83.511A Infection and inflammatory reaction due to indwelling urethral catheter, initial encounter (principal); A41.9 Sepsis, unspecified organism; G93.41 Metabolic encephalopathy; R65.20 Severe sepsis without septic shock; D62 Acute posthemorrhagic anemia; N30.41 Irradiation cystitis with hematuria; N10 Acute pyelonephritis; I95.9 Hypotension, unspecified; E86.9 Volume depletion, unspecified; I69.931 Monoplegia of upper limb following unspecified cerebrovascular disease affecting right dominant side; E78.5 Hyperlipidemia, unspecified; I10 Essential (primary) hypertension; K21.9 Gastro-esophageal reflux disease without esophagitis; B96.4 Proteus (mirabilis) (morganii) as the cause of diseases classified elsewhere; S01.01XA Laceration without foreign body of scalp, initial encounter; W19.XXXA Unspecified fall, initial encounter; Z87.891 Personal history of nicotine dependence; Z20.822 Contact with and (suspected) exposure to COVID-19; Z86.711 Personal history of pulmonary embolism; Z79.01 Long term (current) use of anticoagulants
CPT/HCPCS: 12002; 36415; 70450; 71045; 71260; 74177; 80048; 80053; 80305; 80320; 82550; 82962; 83605; 84484; 85025; 85027; 85610; 86850; 86900; 86901; 87040; 87077; 87086; 87186; 87635; 93005; 94760; 94762; 96361; 96365; 96366; 96375; 97116; 97162; 97167; 97530; 97535; 99285; C9803; J1170; J1956; Q9967